=== PATIENT | female | born 1985 | race Caucasian/White ===

== ENCOUNTER → 2023-12-06 14:46 | Outpatient (REF) | payer OTHER, SELFPAY | LOC: WDC 14:46 | PROVIDERS: ATTENDING PHYSICIAN Surgery | DX: N63.0 Unspecified lump in unspecified breast (principal) | CPT/HCPCS: 76642 ==

== ENCOUNTER 2024-01-03 19:35 | Emergency (ER) | payer OTHER, SELFPAY ==
[2024-01-03 19:43] VITALS: BP 137/88
[2024-01-03 20:04] LABS: % Basophils 0.9 % (0-2); % Eosinophils 6.2 % (0-6); % Immature Granulocytes 0.3 % (0-0.5); % Lymphocytes 19.9 % (20.5-51.1); % Monocytes 6.2 % (1.7-9.3); % Neutrophils 66.5 % (42.2-75.2); Absolute Basophils 0.1 10^3/uL (0-0.2); Absolute Eosinophils 0.7 10^3/uL (0-0.7); Absolute Lymphocytes 2.1 10^3/uL (1.2-3.4); Absolute Monocytes 0.7 10^3/uL (0.1-0.6); Hematocrit 37.9 % (37.0-47.0); Hemoglobin 13.9 g/dL (12.0-16.0); Mean Corp Hgb Conc. 36.7 g/dL (33.0-37.0); Mean Corpuscular Hgb 32.8 pg (27.0-31.0); Mean Corpuscular Volume 89.4 fL (81.0-99.0); Mean Platelet Volume 8.9 fL (7.4-10.4); Nucleated Red Blood Cells % 0 %; Platelet Count 304 10^3/uL (130-400); Red Blood Cell Count 4.24 10^6/uL (4.20-5.40); Red Cell Dist. Width 11.9 % (11.5-14.5); White Blood Cell Count 10.5 10^3/uL (4.8-10.8)
[2024-01-03 20:15] LABS: ALT (SGPT) 12 U/L (0-35); AST (SGOT) 19 U/L (14-36); Albumin 4.2 g/dl (3.5-5.0); Alkaline Phosphatase 55 U/L (38-126); Blood Urea Nitrogen 10 mg/dl (7-17); Calcium 9.2 mg/dl (8.4-10.2); Carbon Dioxide 27 mmol/L (22-30); Chloride 104 mmol/L (98-107); Glucose 78 mg/dl (70-99); Potassium 4.4 mmol/L (3.5-5.1); Sodium 135 mmol/L (135-145); Total Bilirubin 0.4 mg/dl (0.2-1.3); Total Protein 7.2 g/dl (6.3-8.2); eGFR > 60.00
[2024-01-03 20:27] LABS: Troponin I < 0.012 ng/ml
--- NOTE | 2024-01-03 21:31 | ED.GENMED ---
History of Present Illness
General
Chief Complaint: Chest Pain
Source: patient
Time Seen by Provider: 01/03/24 20:47
Travel History
Have you had any contact with someone who has COVID-19?: No
Do you have any symptoms of coronavirus? Fever > 100 degrees, chills, cough, shortness of breath, sore throat, loss of taste or smell, muscle aches, or headache?: No
History of Present Illness
History of Present Illness:
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
intermittently for a few months but today symptoms seem to be a little bit more constant prompting her to come to the ER for further evaluation. Patient was states that intermittently when laying recumbent she will often feel this sharp sensation
on the left side of her chest that lasts for a few minutes and then will resolve, today noticed when she would take of breath feel an intermittent clicking or as if something were rubbing against her but this was not painful. She denies any
shortness of breath, cough, pleurisy, hemoptysis, lower extremity edema, exertional dyspnea or orthopnea, fevers, chills, rigors, recent illnesses or any other concerns. Social and family history was noncontributory.
Of note, patient reports she is approximately 6 weeks but does not have any related concerns.
Past History
Past History
ED Past Medical History: Cancer and Psychiatric
ED Past Surgical History: , Gynecological and Other
Social History
Tobacco: Non-smoker
Alcohol: Occasional
Drug: None
Personal:
Living: with family
Employment: Employed
Family History
Family History: Other (nonContributory)
Review of Systems
Review of Systems
All Other Systems: ROS reviewed and negative except as documented in HPI and ROS
Phy Exam
Physical Exam
Physical Exam:
GENERAL: Alert , in no apparent distress
EYE: clear conjunctiva b/l
HEAD: NCAT
ENT: o/p clr, mmm.
CARDIAC: Regular rate and rhythm, no murmur.
LUNGS: Clear breath sounds bilaterally, no acute respiratory distress, no wheezes/rales/rhonchi
Chest Wall: no tenderness
NEUROLOGICAL: Alert and oriented
SKIN: Warm and dry, skin intact.
MUSCULOSKELETAL: No edema, well perfused.
PSYCH: Normal and appropriate interaction.
Scores
Heart Failure Risk
Heart Failure Risk Score: Not Applicable
Heart Score for Chest Pain Patients
STEMI patient?: Not applicable
Withdrawal Assessment of Alcohol
Withdrawal Assessment Completed?: Not applicable
Course
Orders/Labs/Results
Orders:
Orders
01/03/24 19:37
ECG [Electrocardiogram (*1)] Urgent
Reason for Study: Chest Pain
EKG- Treatment ONCE
01/03/24 19:57
Complete Blood Count/With Diff Urgent
Comprehensive Metabolic Panel Urgent
Troponin I Urgent
Abnormal Lab Results
01/03/24
19:57
MCH 32.8 H pg
(27.0-31.0)
Absolute Neuts (auto) 7.0 H 10^3/uL
(1.4-6.5)
Absolute Monos (auto) 0.7 H 10^3/uL
(0.1-0.6)
Lymphocytes % 19.9 L %
(20.5-51.1)
Eosinophils % 6.2 H %
(0-6)
Creatinine 0.5 L mg/dL
(0.6-1.0)
01/03/24 19:57
01/03/24 19:57
Vital Signs
Initial and Last Documented VS:
Initial Vital Signs
Temp Pulse Resp BP Pulse Ox
97.9 F 94 16 137/88 99
01/03/24 19:43 01/03/24 19:43 01/03/24 19:43 01/03/24 19:43 01/03/24 19:43
Last Documented Vital Signs
Temp Pulse Resp BP Pulse Ox
98.1 F 78 20 121/81 98
01/03/24 21:38 01/03/24 21:38 01/03/24 21:38 01/03/24 21:38 01/03/24 21:44
MDM/Problems Addressed
Differential Diagnosis Includes:
Pleurisy, radiation changes, less concern for ACS presentation given duration of symptoms, PE also considered given patient's risk factors however given lack of symptoms as well as duration of her symptoms felt this was a much less likely diagnosis
MDM/Problems Addressed:
38-year-old female presenting emergency department for evaluation of intermittent chest discomfort that has been off and on over the last 6 weeks, today the pain would be a little bit more consistent although would last only for a minute or 2 and
then resolved. Patient did state that symptoms seem to be only occurring when lying recumbent and that when she would get up and move around the symptoms may have actually improved a little bit. I do not have any suspicion for an atypical ACS
presentation. Patient and I also had a very extensive conversation about her risk factors for PE including her cancer history as well as current however given the fact that she has had the symptoms even prior to her makes this
much less likely to be the cause of her symptoms. Due to her early first trimester state combined with lack of symptoms as well as what would be an atypical presentation for a PE diagnosis patient ultimately decided against any chest imaging
including a CTA of the chest and chest x-ray. We reviewed return precautions to the emergency department. Patient has a follow-up coming up with her radiation oncologist and she will notify them of these symptoms she has been experiencing.
Patient does feel comfortable being discharged home.
Chronic conditions affecting care: Cancer
*Pulse Oximetry
Patient hypoxic: no
*EKG
Interpreted by ED Provider?: Yes
Comparison EKG: no comparison EKG present
Heart Rate: 91
Rate: normal
Rhythm: sinus arrhythmia
[place]: normal axis
Ischemia: no ischemia
*Critical Care Note
Total Time (30-74mins, 75-104mins- exclusive of procedures): Not Applicable
Data Reviewed
Review of Other/Old Records Reveals: Labs and Records
Source: patient
ED Attending Note
-
Portions of this chart may have been created with voice recognition software.� Occasional wrong word or��sound alike� substitutions may have occurred due to the inherent limitations of voice recognition software.
Discharge Plan
Departure
Patient Disposition: Home (Routine Discharge)
Date of Disposition: 01/03/24
Time of Disposition: 21:31
Patient with high blood pressure during this ER visit?: No
Discharge Problem:
Chest pain
Instructions: Chest Pain That Is Not Caused by the Heart (DC)
Prescriptions:
No Action
bupropion HCl [Wellbutrin XL] 150 mg Tablet Extended Release 24 Hr
150 mg PO DAILY
fluoxetine 20 mg Capsule
20 mg PO DAILY Qty: 0 0RF
dextroamphetamine-amphetamine [Adderall] 30 mg Tablet
30 mg PO DAILY PRN (Reason: ADHD)
multivitamin Tablet
1 tab PO DAILY
vitamin B complex Capsule
1 cap PO DAILY
vitamin D3-vitamin K2 1,250-200 mcg Capsule
1 cap PO DAILY
docusate sodium 100 mg Capsule
100 mg PO BID PRN (Reason: Constipation) 30 Days Qty: 60 0RF
acetaminophen [Pain Relief ES (acetaminophen)] 500 mg Tablet
1,000 mg PO Q6 Qty: 90 1RF
tramadol 50 mg Tablet
50 - 100 mg PO Q6HPRN PRN (Reason: pain) 15 Days Qty: 20 0RF
diazepam 5 mg Tablet
5 mg PO TIDPRN PRN (Reason: Muscle Spasms) 30 Days Qty: 40 0RF
cefadroxil 500 mg capsule
500 mg PO BID 21 Days Qty: 42 0RF
ibuprofen 600 mg tablet
600 mg PO Q6H PRN (Reason: mild pain) Qty: 60 1RF
gabapentin 100 mg capsule
100 mg PO TID 30 Days Qty: 90 1RF
Interventions
Interventions:
*Risk Screen - Suicide Last Done: 01/03/24 19:48
*General Assessment Last Done: 01/03/24 19:48
*Neglect/Abuse Screening Last Done: 01/03/24 19:48
ED- Fall Risk Assessment Last Done: 01/03/24 21:44
*ED COVID-19 Vaccine History Last Done: 01/03/24 21:38
*Nursing Disposition Last Done: 01/03/24 21:44
ED- Cardiac Assessment Last Done: 01/03/24 21:38
Discharge Date and Time
Print Language: BANGLADESHI
[2024-01-03 21:38] VITALS: BP 121/81
== END 2024-01-03 21:44 | disposition home or self-care (01) ==
LOC: EMR 19:35
PROVIDERS: Emergency Medicine; EMERGENCY PHYSICIAN Emergency Medicine
DX: O99.891 Other specified diseases and conditions complicating pregnancy (principal); Z3A.01 Less than 8 weeks gestation of pregnancy; R07.89 Other chest pain; Z85.3 Personal history of malignant neoplasm of breast; Z90.13 Acquired absence of bilateral breasts and nipples
CPT/HCPCS: 99283; 80053; 84484; 85025; 93005

== ENCOUNTER → 2024-05-01 12:47 | Outpatient (REF) | payer OTHER, SELFPAY | LOC: WDC 12:47 | PROVIDERS: ATTENDING PHYSICIAN Surgery | DX: R92.2 Inconclusive mammogram (principal); C50.412 Malignant neoplasm of upper-outer quadrant of left female breast | CPT/HCPCS: 76641 ==

== ENCOUNTER → 2024-05-28 09:37 | Outpatient (REF) | payer OTHER, SELFPAY | LOC: PNTC 09:37 | PROVIDERS: ATTENDING PHYSICIAN Obstetrics & Gynecology | DX: O09.529 Supervision of elderly multigravida, unspecified trimester (principal) | CPT/HCPCS: 76816 ==

== ENCOUNTER 2024-06-05 09:53 | Observation (INO) | payer OTHER, SELFPAY ==
[2024-06-05 10:11] VITALS: BP 113/68; BMI 26.9
[2024-06-05 10:15] LABS: Urine Albumin Negative (Neg - Trace); Urine Bilirubin Negative (Negative); Urine Character Clear (Clear); Urine Color Yellow; Urine Glucose Negative (Negative); Urine Ketone Negative (Negative); Urine Leukocyte Negative (Negative); Urine Nitrite Negative (Negative); Urine Occult Blood Negative (Negative); Urine Specific Gravity 1.005 (<1.030); Urine Urobilinogen Negative (Neg - 1+)
[2024-06-05 10:37] LABS: % Basophils 0.6 % (0-2); % Eosinophils 1.3 % (0-6); % Immature Granulocytes 3.1 % (0-0.5); % Lymphocytes 7.8 % (20.5-51.1); % Monocytes 6.3 % (1.7-9.3); % Neutrophils 80.9 % (42.2-75.2); Absolute Basophils 0.1 10^3/uL (0-0.2); Absolute Eosinophils 0.1 10^3/uL (0-0.7); Absolute Immature Granulocytes 0.3 10^3/uL (0-0.05); Absolute Lymphocytes 0.8 10^3/uL (1.2-3.4); Absolute Monocytes 0.6 10^3/uL (0.1-0.6); Absolute Neutrophils 8.1 10^3/uL (1.4-6.5); Hematocrit 31.6 % (37.0-47.0); Hemoglobin 11.5 g/dL (12.0-16.0); Mean Corp Hgb Conc. 36.4 g/dL (33.0-37.0); Mean Corpuscular Hgb 34.2 pg (27.0-31.0); Mean Platelet Volume 8.9 fL (7.4-10.4); Nucleated Red Blood Cells % 0 %; Platelet Count 242 10^3/uL (130-400); Red Blood Cell Count 3.36 10^6/uL (4.20-5.40); Red Cell Dist. Width 12.8 % (11.5-14.5)
[2024-06-05 10:47] LABS: ALT (SGPT) 13 U/L (0-35); AST (SGOT) 22 U/L (14-36); Albumin 3.8 g/dl (3.5-5.0); Alkaline Phosphatase 71 U/L (38-126); Blood Urea Nitrogen 9 mg/dl (7-17); Calcium 9.3 mg/dl (8.4-10.2); Carbon Dioxide 19 mmol/L (22-30); Chloride 105 mmol/L (98-107); Estimated Creatinine Clearance > 125 ml/min; Glucose 83 mg/dl (70-99); Sodium 137 mmol/L (135-145); Total Bilirubin 0.4 mg/dl (0.2-1.3); Total Protein 6.3 g/dl (6.3-8.2); eGFR > 60.00
[2024-06-05 11:31] LABS: Protein/creatinine Ratio 0.4; Urine Protein 12 mg/dl
== END 2024-06-05 12:45 | disposition home or self-care (01) ==
LOC: LDRP 09:53
PROVIDERS: ADMITTING PHYSICIAN Obstetrics & Gynecology
DX: R10.11 Right upper quadrant pain (principal); O98.313 Other infections with a predominantly sexual mode of transmission complicating pregnancy, third trimester; A63.0 Anogenital (venereal) warts; Z3A.28 28 weeks gestation of pregnancy; O34.219 Maternal care for unspecified type scar from previous cesarean delivery; N97.9 Female infertility, unspecified; O09.523 Supervision of elderly multigravida, third trimester; O09.293 Supervision of pregnancy with other poor reproductive or obstetric history, third trimester; O26.23 Pregnancy care for patient with recurrent pregnancy loss, third trimester; O09.813 Supervision of pregnancy resulting from assisted reproductive technology, third trimester; O99.343 Other mental disorders complicating pregnancy, third trimester; F41.9 Anxiety disorder, unspecified; F32.A Depression, unspecified
CPT/HCPCS: 80053; 81003; 82570; 84156; 85025; 86850; 86900; 86901; 87086; G0378

== ENCOUNTER 2024-06-06 14:41 | Emergency (ER) | payer OTHER, SELFPAY ==
[2024-06-06 16:38] LABS: % Basophils 0.5 % (0-2); % Eosinophils 2.6 % (0-6); % Immature Granulocytes 2.4 % (0-0.5); % Lymphocytes 13.9 % (20.5-51.1); % Monocytes 7.6 % (1.7-9.3); Absolute Basophils 0.1 10^3/uL (0-0.2); Absolute Eosinophils 0.2 10^3/uL (0-0.7); Absolute Immature Granulocytes 0.2 10^3/uL (0-0.05); Absolute Lymphocytes 1.3 10^3/uL (1.2-3.4); Absolute Monocytes 0.7 10^3/uL (0.1-0.6); Absolute Neutrophils 6.8 10^3/uL (1.4-6.5); Hematocrit 32.2 % (37.0-47.0); Hemoglobin 11.6 g/dL (12.0-16.0); Mean Corpuscular Hgb 34.3 pg (27.0-31.0); Mean Corpuscular Volume 95.3 fL (81.0-99.0); Mean Platelet Volume 8.9 fL (7.4-10.4); Nucleated Red Blood Cells % 0 %; Platelet Count 227 10^3/uL (130-400); Red Blood Cell Count 3.38 10^6/uL (4.20-5.40); Red Cell Dist. Width 13.1 % (11.5-14.5); White Blood Cell Count 9.4 10^3/uL (4.8-10.8)
[2024-06-06 16:47] LABS: Urine Albumin Negative (Neg - Trace); Urine Bilirubin Negative (Negative); Urine Character Clear (Clear); Urine Color Straw; Urine Glucose Negative (Negative); Urine Ketone Trace (Negative); Urine Leukocyte Negative (Negative); Urine Nitrite Negative (Negative); Urine Occult Blood Negative (Negative); Urine Urobilinogen Negative (Neg - 1+)
[2024-06-06 16:49] LABS: ALT (SGPT) 14 U/L (0-35); AST (SGOT) 21 U/L (14-36); Albumin 3.7 g/dl (3.5-5.0); Alkaline Phosphatase 68 U/L (38-126); Blood Urea Nitrogen 11 mg/dl (7-17); Calcium 9.4 mg/dl (8.4-10.2); Carbon Dioxide 21 mmol/L (22-30); Chloride 106 mmol/L (98-107); Glucose 81 mg/dl (70-99); Lipase 67 U/L (23-300); Potassium 3.8 mmol/L (3.5-5.1); Sodium 138 mmol/L (135-145); Total Bilirubin 0.3 mg/dl (0.2-1.3); Total Protein 6.1 g/dl (6.3-8.2); eGFR > 60.00
[2024-06-06 17:05] VITALS: BP 120/76
--- NOTE | 2024-06-06 17:16 | ED.GENMED ---
History of Present Illness
General
Chief Complaint: Abdominal Pain
Source: patient
Time Seen by Provider: 06/06/24 15:36
History of Present Illness
History of Present Illness:
38-year-old female presents for evaluation of right quad abdominal pain. The patient states she was here last night in labor and delivery and had a full evaluation and was advised to get outpatient ultrasound of her gallbladder. Patient states
today pain has persisted. She states her labs yesterday were normal. She states the patient is worse when she standing and better when she lays flat. She admits that she is not sure if it is worse after she eats. The patient states she just gets
nervous because she has a history of breast cancer. Did get a mastectomy bilaterally and had radiation. She denies pleuritic pain. She denies shortness of breath. No back pain. No hemoptysis. No leg swelling.
Past History
Past History
ED Past Medical History: Cancer (Breast), Psychiatric and Other (Endometritis, anxiety, depression)
ED Past Surgical History: , Gynecological and Other
Social History
Tobacco: Non-smoker
Alcohol: Occasional
Drug: None
Personal:
Living: with family
Employment: Employed
Family History
Family History: Other (nonContributory)
Phy Exam
Physical Exam
Physical Exam:
CONSTITUTIONAL Patient alert and oriented to person, place and time. Well-appearing. Vital signs reviewed.
HEAD atraumatic, normocephalic.
EYES eyelids normal to inspection, Pupils equally round and reactive to light, Extraocular muscles intact, Conjunctiva normal, Sclera normal.
NECK normal range of motion, Trachea midline, no jugular venous distention.
RESPIRATORY CHEST No respiratory distress noted, Chest expansion equal, Bilateral breath sounds clear.
CARDIOVASCULAR regular rate and rhythm, Heart sounds normal.
ABDOMEN abdomen nontender, Bowel sounds normal. No distention. Gravid uterus noted. Negative Teran's
BACK normal inspection, no obvious deformities
UPPER EXTREMITY range of motion normal, Motor strength normal, no cyanosis, no edema.
LOWER EXTREMITY range of motion normal, Motor strength normal, no cyanosis, no edema.
NEURO Speech normal, No focal motor deficits, Maurice coma scale 15, Memory normal, Cranial Nerves intact to screening exam.
SKIN skin warm, dry, and normal in color.
PSYCHIATRIC patient oriented to person place and time, Normal affect.
Course
Orders/Labs/Results
Orders:
Orders
06/06/24 16:01
US Abdomen Complete/Upper Urgent
Comment:
Reason For Exam: RUQ pain
06/06/24 16:27
Complete Blood Count/With Diff Urgent
Comprehensive Metabolic Panel Urgent
Lipase Urgent
Urinalysis Reflex To Culture Urgent
Date Specimen was Collected: 06/06/24
Time Specimen was Collected: 16:25
Abnormal Lab Results
06/06/24
16:27
RBC 3.38 L 10^6/uL
(4.20-5.40)
Hgb 11.6 L g/dL
(12.0-16.0)
Hct 32.2 L %
(37.0-47.0)
MCH 34.3 H pg
(27.0-31.0)
Abs Immat Gran (auto) 0.2 H 10^3/uL
(0-0.05)
Absolute Neuts (auto) 6.8 H 10^3/uL
(1.4-6.5)
Absolute Monos (auto) 0.7 H 10^3/uL
(0.1-0.6)
Immature Gran % 2.4 H %
(0-0.5)
Lymphocytes % 13.9 L %
(20.5-51.1)
Carbon Dioxide 21 L mmol/L
(22-30)
Creatinine 0.5 L mg/dL
(0.6-1.0)
Total Protein 6.1 L g/dl
(6.3-8.2)
Urine Ketones Trace A
(Negative)
06/06/24 16:27
06/06/24 16:27
Vital Signs
Initial and Last Documented VS:
Initial Vital Signs
Temp Pulse Resp BP Pulse Ox
98.3 F 86 18 120/76 98
06/06/24 17:05 06/06/24 17:05 06/06/24 17:05 06/06/24 17:05 06/06/24 17:05
Last Documented Vital Signs
Temp Pulse Resp BP Pulse Ox
98.3 F 86 18 120/76 98
06/06/24 17:05 06/06/24 17:05 06/06/24 17:05 06/06/24 17:05 06/06/24 17:05
MDM/Problems Addressed
MDM/Problems Addressed:
Abdominal pain
*Radiology
Radiology exam reviewed: radiology read reviewed
*Pulse Oximetry
Patient hypoxic: no
*Critical Care Note
Total Time (30-74mins, 75-104mins- exclusive of procedures): Not Applicable
Data Reviewed
Source: patient
Further Testing Considered But Not Given:
Consider evaluation for PE but no pleuritic pain. No hypoxia. No dyspnea. No tachypnea
Patient Management
Escalation/DeEscalation of care consider admission/obs:
Patient appears well. Labs grossly unremarkable. Ultrasound negative. Patient admits that is only bad when she stands. She I question whether this could be musculoskeletal in nature. I do feel she is safe for discharge and outpatient follow-up.
hearts normal
ED Attending Note
-
Portions of this chart may have been created with voice recognition software.� Occasional wrong word or��sound alike� substitutions may have occurred due to the inherent limitations of voice recognition software.
Discharge Plan
Departure
Patient Disposition: Home (Routine Discharge)
Date of Disposition: 06/06/24
Time of Disposition: 18:01
Patient with high blood pressure during this ER visit?: No
Discharge Problem:
Abdominal pain
Instructions: Abdominal Pain
Prescriptions:
No Action
bupropion HCl [Wellbutrin XL] 150 mg Tablet Extended Release 24 Hr
150 mg PO BID
prenat.vits,wendy,nir-ateg-[id number] Tablet
1 tab PO DAILY
escitalopram oxalate [Lexapro] 5 mg Tablet
5 mg PO HS
acetaminophen [Tylenol Extra Strength] 500 mg Tablet
1,000 mg PO Q6HPRN PRN (Reason: headache) Qty: 0 0RF
Referrals:
NONE,* [Family Provider] -
Activity Restrictions/Additional Instructions:
Please see your doctor in follow-up in the next 1 week. Return immediately for worsening pain, shortness of breath, pain when you take a deep breath, fevers or any other concern please additionally monitor for any vaginal bleeding, loss of
movement, abdominal cramping or any other concerns.
Interventions
Interventions:
*Risk Screen - Suicide Last Done: 06/06/24 17:06
*General Assessment Last Done: 06/06/24 17:06
*Neglect/Abuse Screening Last Done: 06/06/24 17:06
ED- Fall Risk Assessment Last Done: 06/06/24 17:09
*ED COVID-19 Vaccine History Last Done: 06/06/24 17:09
XD-Arqdag-Dopmpbouhm Assessment Last Done: 06/06/24 15:18
Discharge Date and Time
Print Language: MALAY
== END 2024-06-06 18:33 | disposition home or self-care (01) ==
LOC: EMR 14:41
PROVIDERS: EMERGENCY PHYSICIAN Emergency Medicine
DX: O99.891 Other specified diseases and conditions complicating pregnancy (principal); R10.11 Right upper quadrant pain; Z85.3 Personal history of malignant neoplasm of breast; Z90.13 Acquired absence of bilateral breasts and nipples; Z3A.28 28 weeks gestation of pregnancy
CPT/HCPCS: 99284; 76700; 80053; 81003; 83690; 85025

== ENCOUNTER 2024-07-30 13:19 | Observation (INO) | payer OTHER, SELFPAY ==
[2024-07-30 13:47] VITALS: BP 123/71; BMI 28.4
[2024-07-30 13:51] LABS: Urine Albumin Negative (Neg - Trace); Urine Bilirubin Negative (Negative); Urine Character Clear (Clear); Urine Color Yellow; Urine Glucose 1+ (Negative); Urine Ketone 1+ (Negative); Urine Leukocyte Negative (Negative); Urine Nitrite Negative (Negative); Urine Occult Blood Negative (Negative); Urine Urobilinogen Negative (Neg - 1+)
[2024-07-30 14:00] LABS: Hematocrit 28.2 % (37.0-47.0); Hemoglobin 10.3 g/dL (12.0-16.0); Mean Corp Hgb Conc. 36.5 g/dL (33.0-37.0); Mean Corpuscular Hgb 33.4 pg (27.0-31.0); Mean Corpuscular Volume 91.6 fL (81.0-99.0); Mean Platelet Volume 9.1 fL (7.4-10.4); Platelet Count 219 10^3/uL (130-400); Red Blood Cell Count 3.08 10^6/uL (4.20-5.40); Red Cell Dist. Width 13.1 % (11.5-14.5); White Blood Cell Count 10.3 10^3/uL (4.8-10.8)
[2024-07-30 14:15] LABS: ALT (SGPT) 12 U/L (0-35); AST (SGOT) 20 U/L (14-36); Albumin 3.3 g/dl (3.5-5.0); Alkaline Phosphatase 96 U/L (38-126); Blood Urea Nitrogen 6 mg/dl (7-17); Calcium 9.3 mg/dl (8.4-10.2); Carbon Dioxide 23 mmol/L (22-30); Chloride 106 mmol/L (98-107); Estimated Creatinine Clearance > 125 ml/min; Glucose 128 mg/dl (70-99); Potassium 3.8 mmol/L (3.5-5.1); Sodium 137 mmol/L (135-145); Total Bilirubin 0.2 mg/dl (0.2-1.3); Total Protein 5.7 g/dl (6.3-8.2); eGFR > 60.00
[2024-07-30 15:20] LABS: Protein/creatinine Ratio 0.5; Urine Protein 15 mg/dl
== END 2024-07-30 16:45 | disposition home or self-care (01) ==
LOC: PNTC-IN 13:19
PROVIDERS: ADMITTING PHYSICIAN Obstetrics & Gynecology
DX: R10.11 Right upper quadrant pain (principal); R03.0 Elevated blood-pressure reading, without diagnosis of hypertension; O09.523 Supervision of elderly multigravida, third trimester; Z3A.28 28 weeks gestation of pregnancy; N97.9 Female infertility, unspecified
CPT/HCPCS: 59025; 76815; 80053; 81003; 82570; 84156; 85027; 86850; 86900; 86901; G0378

== ENCOUNTER → 2024-08-06 11:19 | Outpatient (REF) | payer OTHER, SELFPAY | LOC: PNTC 11:19 | PROVIDERS: ATTENDING PHYSICIAN Obstetrics & Gynecology | DX: O09.519 Supervision of elderly primigravida, unspecified trimester (principal) | CPT/HCPCS: 59025; 76815 ==

== ENCOUNTER 2024-08-08 15:17 | Inpatient (IN) | payer OTHER, SELFPAY ==
[2024-08-08 14:01] VITALS: BP 145/86; BMI 28.9
[2024-08-08 14:38] LABS: Hematocrit 30.8 % (37.0-47.0); Hemoglobin 11.1 g/dL (12.0-16.0); Mean Corpuscular Volume 94.5 fL (81.0-99.0); Mean Platelet Volume 9.4 fL (7.4-10.4); Platelet Count 236 10^3/uL (130-400); Red Blood Cell Count 3.26 10^6/uL (4.20-5.40); Red Cell Dist. Width 13.2 % (11.5-14.5); White Blood Cell Count 12.5 10^3/uL (4.8-10.8)
[2024-08-08 15:03] LABS: INR 0.97; PT 13.2 Sec (11.4-14.6)
[2024-08-08 15:03] LABS: ALT (SGPT) 14 U/L (0-35); AST (SGOT) 22 U/L (14-36); Albumin 3.6 g/dl (3.5-5.0); Alkaline Phosphatase 122 U/L (38-126); Blood Urea Nitrogen 5 mg/dl (7-17); Calcium 9.1 mg/dl (8.4-10.2); Carbon Dioxide 23 mmol/L (22-30); Chloride 108 mmol/L (98-107); Estimated Creatinine Clearance > 125 ml/min; Glucose 78 mg/dl (70-99); Potassium 3.9 mmol/L (3.5-5.1); Sodium 139 mmol/L (135-145); Total Bilirubin 0.3 mg/dl (0.2-1.3); Total Protein 6.2 g/dl (6.3-8.2); eGFR > 60.00
[2024-08-08 15:11] LABS: Urine Albumin Negative (Neg - Trace); Urine Bilirubin Negative (Negative); Urine Character Very Cloudy (Clear); Urine Color Yellow; Urine Glucose Negative (Negative); Urine Ketone 3+ (Negative); Urine Leukocyte Negative (Negative); Urine Nitrite Negative (Negative); Urine Occult Blood Negative (Negative); Urine Urobilinogen Negative (Neg - 1+)
[2024-08-08 15:29] LABS: Protein/creatinine Ratio 0.3; Urine Protein 20 mg/dl
[2024-08-08] MEDS: LR 1000 IV (15:30)
[2024-08-08] MEDS: TYLENOL 1000 MG PO (15:48)
[2024-08-08] MEDS: BICITRA 30 ML PO (15:48)
[2024-08-08] MEDS: ANCEF 10 IV (16:00)
[2024-08-08] MEDS: PITOCIN 30 UNITS/NSS 500 ML IV (18:29)
[2024-08-08] MEDS: MORPHINE SULFATE 2 MG IV (18:50)
[2024-08-08] MEDS: ZOFRAN 4 MG IV (20:30)
[2024-08-08] MEDS: TORADOL 15 MG IV (23:54)
[2024-08-08] MEDS: BENADRYL 25 MG IV (23:57)
[2024-08-09 05:15] LABS: Hematocrit 28.4 % (37.0-47.0); Hemoglobin 10.4 g/dL (12.0-16.0); Mean Corp Hgb Conc. 36.6 g/dL (33.0-37.0); Mean Corpuscular Hgb 34.4 pg (27.0-31.0); Mean Platelet Volume 9.4 fL (7.4-10.4); Platelet Count 206 10^3/uL (130-400); Red Blood Cell Count 3.02 10^6/uL (4.20-5.40); Red Cell Dist. Width 13.2 % (11.5-14.5); White Blood Cell Count 12.8 10^3/uL (4.8-10.8)
[2024-08-09] MEDS: TORADOL 15 MG IV ×3 (05:56→18:58)
[2024-08-09] MEDS: LEXAPRO 5 MG PO (07:24)
[2024-08-09] MEDS: PRENATAL PLUS 1 TABLET PO (07:24)
[2024-08-09] MEDS: WELLBUTRIN XL (24 hour extended release) 300 MG PO (07:24)
[2024-08-09] MEDS: PERCOCET 5/325 1 TABLET PO ×3 (07:24→16:13)
[2024-08-09] MEDS: SENOKOT-S 1 TABLET PO (16:13)
[2024-08-09] MEDS: MYLICON 80 MG PO (20:54)
[2024-08-09] MEDS: PERCOCET 5/325 2 TABLET PO (20:54)
--- NOTE | 2024-08-09 21:08 | W.PN.ANS.POP ---
Anesthesia Post Operative
- Anesthesia Post Op Note
Vital Signs Stable-See Nursing Note: Yes
Airway Patent: Yes
Adequate Pain Control: Yes
Change in Mental Status: No
Current Postoperative Nausea & Vomiting: No
Anesthesia Complications: No
General Anesthetic Recall: No
Unplanned Admission: No
Post Op Hydration Adequate: Yes
[2024-08-10] MEDS: PERCOCET 5/325 1 TABLET PO ×4 (01:59→14:54)
[2024-08-10] MEDS: MOTRIN 600 MG PO ×4 (01:59→21:46)
[2024-08-10] MEDS: LEXAPRO 5 MG PO (07:54)
[2024-08-10] MEDS: PRENATAL PLUS 1 TABLET PO (07:54)
[2024-08-10] MEDS: WELLBUTRIN XL (24 hour extended release) 300 MG PO (07:54)
[2024-08-10] MEDS: SENOKOT-S 1 TABLET PO (07:56)
[2024-08-10] MEDS: MYLICON 80 MG PO (14:54)
[2024-08-10] MEDS: PERCOCET 5/325 2 TABLET PO (20:04)
[2024-08-11] MEDS: MOTRIN 600 MG PO ×2 (04:21→09:18)
[2024-08-11] MEDS: PERCOCET 5/325 1 TABLET PO (09:08)
[2024-08-11] MEDS: SENOKOT-S 1 TABLET PO (09:17)
[2024-08-11] MEDS: PRENATAL PLUS 1 TABLET PO (09:18)
[2024-08-11] MEDS: LEXAPRO 5 MG PO (09:18)
[2024-08-11] MEDS: WELLBUTRIN XL (24 hour extended release) 300 MG PO (09:19)
[2024-08-11 11:31] LABS: Syphilis/T. pallidum Ab Reflex Negative (Negative)
== END 2024-08-11 13:31 | disposition home or self-care (01) | DRG 788 ==
LOC: LDRP 15:17
PROVIDERS: Student in an Organized Health Care Education/Training Program; ADMITTING PHYSICIAN Obstetrics & Gynecology
PROC: 10D00Z1 Extraction of Products of Conception, Low, Open Approach (ICD-10-PCS; 2024-08-08)
DX: O14.94 Unspecified pre-eclampsia, complicating childbirth (principal); Z3A.37 37 weeks gestation of pregnancy; Z37.0 Single live birth; O99.892 Other specified diseases and conditions complicating childbirth; D25.2 Subserosal leiomyoma of uterus; O34.211 Maternal care for low transverse scar from previous cesarean delivery; O69.2XX0 Labor and delivery complicated by other cord entanglement, with compression, not applicable or unspecified; O77.0 Labor and delivery complicated by meconium in amniotic fluid; Z85.3 Personal history of malignant neoplasm of breast; Z90.13 Acquired absence of bilateral breasts and nipples
CPT/HCPCS: 88307; 36415; 80053; 81003; 82570; 84156; 84550; 85027; 85610; 86780; 86850; 86900; 86901

== ENCOUNTER 2024-08-21 20:10 | Observation (INO) | payer OTHER, SELFPAY ==
[2024-08-21 17:23] VITALS: BP 191/106
[2024-08-21 18:03] VITALS: BP 189/97
[2024-08-21 18:13] VITALS: BMI 26.2
[2024-08-21 18:21] LABS: % Basophils 0.9 % (0-2); % Eosinophils 3.1 % (0-6); % Immature Granulocytes 0.5 % (0-0.5); % Lymphocytes 20.6 % (20.5-51.1); % Neutrophils 70.9 % (42.2-75.2); Absolute Basophils 0.1 10^3/uL (0-0.2); Absolute Eosinophils 0.3 10^3/uL (0-0.7); Absolute Immature Granulocytes 0.1 10^3/uL (0-0.05); Absolute Lymphocytes 2.3 10^3/uL (1.2-3.4); Absolute Monocytes 0.4 10^3/uL (0.1-0.6); Absolute Neutrophils 7.8 10^3/uL (1.4-6.5); Hematocrit 39.1 % (37.0-47.0); Hemoglobin 13.8 g/dL (12.0-16.0); Mean Corp Hgb Conc. 35.3 g/dL (33.0-37.0); Mean Corpuscular Hgb 32.7 pg (27.0-31.0); Mean Corpuscular Volume 92.7 fL (81.0-99.0); Mean Platelet Volume 8.6 fL (7.4-10.4); Nucleated Red Blood Cells % 0 %; Platelet Count 369 10^3/uL (130-400); Red Blood Cell Count 4.22 10^6/uL (4.20-5.40); Red Cell Dist. Width 12.1 % (11.5-14.5); White Blood Cell Count 11.1 10^3/uL (4.8-10.8)
[2024-08-21 18:43] LABS: ALT (SGPT) 18 U/L (0-35); AST (SGOT) 22 U/L (14-36); Albumin 4.7 g/dl (3.5-5.0); Alkaline Phosphatase 103 U/L (38-126); Blood Urea Nitrogen 10 mg/dl (7-17); Calcium 9.8 mg/dl (8.4-10.2); Carbon Dioxide 27 mmol/L (22-30); Chloride 102 mmol/L (98-107); Estimated Creatinine Clearance 107 ml/min; Glucose 90 mg/dl (70-99); Potassium 3.8 mmol/L (3.5-5.1); Sodium 142 mmol/L (135-145); Total Bilirubin 0.4 mg/dl (0.2-1.3); Total Protein 7.6 g/dl (6.3-8.2); eGFR > 60.00
[2024-08-21 19:52] LABS: Urine Albumin Negative (Neg - Trace); Urine Bilirubin Negative (Negative); Urine Character Clear (Clear); Urine Color Yellow; Urine Glucose Negative (Negative); Urine Ketone Negative (Negative); Urine Leukocyte Negative (Negative); Urine Nitrite Negative (Negative); Urine Occult Blood 1+ (Negative); Urine Specific Gravity 1.005 (<1.030); Urine Urobilinogen Negative (Neg - 1+)
--- NOTE | 2024-08-21 19:58 | ED.GENMED ---
History of Present Illness
General
Chief Complaint: Blood Pressure Problem
Source: patient
Exam Limitations: none
Time Seen by Provider: 08/21/24 19:41
History of Present Illness
History of Present Illness:
almost 2 weeks presents with a slight foggy feeling in her head and some mild chest pressure. This started this afternoon. She took an Adderall 30 mg today prior. She historically has been on Adderall. Blood pressures were
elevated. Blood pressures have been elevated peripartum. She was delivered at 37 weeks. No blood pressure management. Blood pressures at home are in the 190/110 range.
Past History
Past History
ED Past Medical History: Cancer (Breast), Psychiatric, Other (Endometritis, anxiety, depression) and Other (Preeclampsia)
ED Past Surgical History: , Gynecological and Other
Social History
Tobacco: Non-smoker
Alcohol: Occasional
Drug: None
Personal:
Living: with family
Employment: Employed
Family History
Family History: Other (nonContributory)
Phy Exam
Physical Exam
Physical Exam:
GENERAL: Alert and oriented in no apparent distress
EYE: Orbits normal. Discs sharp
NECK: Supple, no significant adenopathy.
ENT: Pharynx without erythema
CARDIAC: Regular rate and rhythm without any obvious murmurs.
LUNGS: Clear breath sounds,normal
ABDOMEN: Soft, without focal tenderness or distention
NEUROLOGICAL: Alert and oriented , grossly non-focal. Mildly hyperreflexic patellar reflexes. No clonus
SKIN: Warm and dry, no rash or lesion, no discoloration, skin intact.
MUSCULOSKELETAL: No edema,no deformity.Good color
PSYCH: Normal and appropriate interaction.
Course
Orders/Labs/Results
Orders:
Orders
08/21/24 Breakfast
NPO
Allow oral meds: Yes
Allow clear liquids: Sips of Clears
08/21/24 17:29
ECG [Electrocardiogram (*1)] Urgent
Reason for Study: Other
Other Reason for Exam: blood pressure
08/21/24 17:30
EKG- Treatment ONCE
08/21/24 18:11
Complete Blood Count/With Diff Urgent
Comprehensive Metabolic Panel Urgent
08/21/24 19:44
Urinalysis Urgent
Date Specimen was Collected: 08/21/24
Time Specimen was Collected: 19:41
Urine Microscopic Urgent
Date Specimen was Collected: 08/21/24
Time Specimen was Collected: 19:41
08/21/24 19:57
Calcium Gluconate 1,000 mg IV PRN PRN
Magnesium Sulfate 4 Gram/100Ml [Magnesium Sulfate] 4 gram in 100 ml IV NOW
Activity As Directed
Activity Level: Bedrest
Comment: in lateral recumbent position
Anti-embolism (BLACK) Hose As Directed
Type: Thigh high
Continuous Electronic Monitoring As Directed
Comment: continuous heart rate and uterine monitoring while undelivered
INT (Intravenous Needle Therapy) As Directed
Comment: Insert and maintain 2 IV access sites
Intake/ Output As Directed
Frequency: q1h
Comment: strict hourly Input and Output while on magnesium therapy
Magnesium Sulfate Maternal Monitoring As Directed
Monitoring Instructions: Maternal vital signs including Oxygen Saturation
- every 5 minutes during bolus of Magnesium Sulfate, then every 15 minutes x 4, then
every 30 minutes x 2, then every hour until delivered.
- After delivery, every 15 minutes x 2, then hourly until magnesium sulfate therapy
is discontinued.
Deep tendon reflexes (DTR) every 2 hours
Ausculation of lungs every 2 hours
Notify MD As Directed
Notify physician if: 1. Deep tendon reflexes are greater than +2 or absent
2. Rales present or respirations less than or equal to 12
Vital Signs As Directed
Frequency: Other
Additional Instructions:: Maternal vital signs including Oxygen Saturation
- every 5 minutes during bolus of Magnesium Sulfate, then every 15 minutes x 4, then
every 30 minutes x 2, then every hour until delivered.
-After delivery, every 15 minutes x 2, then hourly until magnesium sulfate therapy
is discontinued.
Vital Signs As Directed
Frequency: Other
Additional Instructions:: When blood pressure is within the target range:
repeat BP Q10min x 1hr, Q15min x 1hr, Q30min x 1hr, and Q1H x 4hr
Target BP < 160/110 mmHg
Rx Incentive Spirometry [RESP] Routine
Frequency: Other
Comment: BID
08/21/24 20:00
Lactated Ringers [Lr] 1,000 ml IV 75 mls/hr
Abnormal Lab Results
08/21/24 08/21/24
18:11 19:44
WBC 11.1 H 10^3/uL
(4.8-10.8)
MCH 32.7 H pg
(27.0-31.0)
Abs Immat Gran (auto) 0.1 H 10^3/uL
(0-0.05)
Absolute Neuts (auto) 7.8 H 10^3/uL
(1.4-6.5)
Urine Occult Blood 1+ A
(Negative)
Urine Bacteria Few A
(Negative)
08/21/24 18:11
08/21/24 18:11
Vital Signs
Initial and Last Documented VS:
Initial Vital Signs
Temp Pulse Resp BP Pulse Ox
97.8 F 66 18 191/106 98
08/21/24 17:23 08/21/24 17:23 08/21/24 17:23 08/21/24 17:23 08/21/24 17:23
Last Documented Vital Signs
Temp Pulse Resp BP Pulse Ox
97.8 F 52 17 189/97 97
08/21/24 17:23 08/21/24 18:30 08/21/24 18:30 08/21/24 18:03 08/21/24 18:30
*Pulse Oximetry
Patient hypoxic: no
*EKG
Interpreted by ED Provider?: Yes
Interpretation: normal
Heart Rate: 54
Rate: bradycardiac
Rhythm: sinus
[place]: normal axis
Interval: normal interval
QRS Pattern: normal QRS
Ischemia: no ischemia
*Critical Care Note
Total Time (30-74mins, 75-104mins- exclusive of procedures): Not Applicable
Update Note
Update Note:
Discussed with [facility]. Do not start mag here. They will see immediately upstairs and manage.
ED Attending Note
-
Portions of this chart may have been created with voice recognition software.� Occasional wrong word or��sound alike� substitutions may have occurred due to the inherent limitations of voice recognition software.
Discharge Plan
Departure
Patient Disposition: Admit
Date of Disposition: 08/21/24
Time of Disposition: 19:57
Presentation/result/management discussed w/ accepting MD/DO: [facility]
Discharge Problem:
preeclampsia
Prescriptions:
No Action
bupropion HCl [Wellbutrin XL] 300 mg Tablet Extended Release 24 Hr
300 mg PO DAILY
escitalopram oxalate [Lexapro] 5 mg Tablet
5 mg PO DAILY
prenat.vits,wendy,plh-gccm-uzxfr Tablet
1 tab DAILY
sennosides-docusate sodium 8.6-50 mg Tablet
1 tab PO DAILYPRN PRN (Reason: constipation) Qty: 0 0RF
oxycodone-acetaminophen 5-325 mg Tablet
1 tab PO Q4HPRN PRN (Reason: moderate pain) Qty: 10 0RF
ibuprofen 600 mg Tablet
600 mg PO Q6HPRN PRN (Reason: cramps) Qty: 45 0RF
acetaminophen 325 mg Tablet
650 mg PO Q4HPRN PRN (Reason: mild pain) Qty: 0 0RF
Referrals:
Lilia Monsalve DO [Family Provider] -
Interventions
Interventions:
ED- Cardiac Assessment Last Done: 08/21/24 18:35
ED- Neurological Assessment Last Done: 08/21/24 18:36
Discharge Date and Time
Print Language: DANISH
[2024-08-21 20:02] LABS: Urine Squamous Cell 0-2 /LPF (Few)
[2024-08-21 20:03] LABS: Urine Bacteria Few (Negative); Urine Red Blood Cell 0-2 /HPF (0-2); Urine White Cell 0-2 /HPF (0-5)
[2024-08-21 20:32] VITALS: BMI 25.9
[2024-08-21] MEDS: MAGNESIUM SULFATE 100 IV (20:37)
[2024-08-21] MEDS: LR 1000 IV (20:38)
[2024-08-21] MEDS: TYLENOL 1000 MG PO (20:50)
[2024-08-21] MEDS: ADALAT 10 MG PO (20:53)
[2024-08-21 21:11] VITALS: BP 176/96
[2024-08-21] MEDS: MAGNESIUM SULFATE 40 GRAM 1000 IV (21:15)
[2024-08-22] MEDS: MOTRIN 600 MG PO ×4 (01:38→20:47)
[2024-08-22] MEDS: TYLENOL 650 MG PO ×3 (04:05→14:36)
[2024-08-22] MEDS: LR 1000 IV (09:43)
[2024-08-22] MEDS: BENADRYL 25 MG IV (10:46)
[2024-08-22] MEDS: LEXAPRO 5 MG PO (12:37)
[2024-08-22] MEDS: WELLBUTRIN XL (24 hour extended release) 300 MG PO (12:37)
[2024-08-22 13:57] LABS: Magnesium 6.9 mg/dl (1.6-2.3)
[2024-08-22] MEDS: MAGNESIUM SULFATE 40 GRAM 1000 IV (16:47)
[2024-08-22] MEDS: FIORICET 2 TAB PO (17:03)
[2024-08-22] MEDS: PROCARDIA XL (EXTENDED RELEASE) 30 MG PO (19:51)
[2024-08-22] MEDS: FIORICET 1 TAB PO (23:59)
[2024-08-23] MEDS: MOTRIN 600 MG PO ×3 (03:07→16:10)
[2024-08-23] MEDS: PROCARDIA XL (EXTENDED RELEASE) 30 MG PO (08:38)
[2024-08-23] MEDS: LEXAPRO 5 MG PO (08:40)
[2024-08-23] MEDS: WELLBUTRIN XL (24 hour extended release) 300 MG PO (08:40)
[2024-08-23] MEDS: TYLENOL 650 MG PO (08:41)
[2024-08-23] MEDS: FIORICET 2 TAB PO (11:49)
--- NOTE | 2024-08-23 15:11 | CM ---
CM spoke with pt
Pt reports she lives in a 2 story home with her SO and 3 children
Currently unemployed, independent, drives
DME - none
SNF/HH - denies past hx
Has ride at discharge
PCP - none. Encouraged to obtain PCP
Pharm - [facility]
Plan - anticipate home no needs
[2024-08-24] MEDS: WELLBUTRIN XL (24 hour extended release) 300 MG PO (08:19)
[2024-08-24] MEDS: LEXAPRO 5 MG PO (08:19)
[2024-08-24] MEDS: PROCARDIA XL (EXTENDED RELEASE) 30 MG PO (08:19)
== END 2024-08-24 11:30 | disposition home or self-care (01) ==
LOC: LDRP 20:10
PROVIDERS: Student in an Organized Health Care Education/Training Program; ADMITTING PHYSICIAN Obstetrics & Gynecology; EMERGENCY PHYSICIAN Emergency Medicine; FAMILY PHYSICIAN Obstetrics & Gynecology
DX: O14.15 Severe pre-eclampsia, complicating the puerperium (principal); F32.A Depression, unspecified; F41.9 Anxiety disorder, unspecified; R00.1 Bradycardia, unspecified; G43.909 Migraine, unspecified, not intractable, without status migrainosus; Z87.59 Personal history of other complications of pregnancy, childbirth and the puerperium; Z85.3 Personal history of malignant neoplasm of breast
CPT/HCPCS: 80053; 81003; 81015; 83735; 85025; 93005; 99284

== ENCOUNTER → 2024-11-24 12:43 | Outpatient (REF) | payer OTHER, SELFPAY | LOC: RAD 12:43 | PROVIDERS: ATTENDING PHYSICIAN Surgery Plastic and Reconstructive Surgery; FAMILY PHYSICIAN Family Medicine | DX: Z42.1 Encounter for breast reconstruction following mastectomy (principal) | CPT/HCPCS: 74174; Q9967 ==

== ENCOUNTER → 2024-11-27 09:45 | Outpatient (REF) | payer OTHER, SELFPAY ==
[2024-11-27 11:07] LABS: % Basophils 0.9 % (0-2); % Eosinophils 6.3 % (0-6); % Immature Granulocytes 0.5 % (0-0.5); % Lymphocytes 19.8 % (20.5-51.1); % Monocytes 7.3 % (1.7-9.3); % Neutrophils 65.2 % (42.2-75.2); Absolute Basophils 0.1 10^3/uL (0-0.2); Absolute Eosinophils 0.5 10^3/uL (0-0.7); Absolute Lymphocytes 1.5 10^3/uL (1.2-3.4); Absolute Monocytes 0.6 10^3/uL (0.1-0.6); Absolute Neutrophils 4.9 10^3/uL (1.4-6.5); Hematocrit 38.4 % (37.0-47.0); Hemoglobin 13.5 g/dL (12.0-16.0); Mean Corp Hgb Conc. 35.2 g/dL (33.0-37.0); Mean Corpuscular Volume 93.9 fL (81.0-99.0); Mean Platelet Volume 9.5 fL (7.4-10.4); Nucleated Red Blood Cells % 0 %; Platelet Count 266 10^3/uL (130-400); Red Blood Cell Count 4.09 10^6/uL (4.20-5.40); Red Cell Dist. Width 12.1 % (11.5-14.5); White Blood Cell Count 7.5 10^3/uL (4.8-10.8)
[2024-11-27 11:49] LABS: ALT (SGPT) 16 U/L (0-35); AST (SGOT) 22 U/L (14-36); Albumin 5.1 g/dl (3.5-5.0); Alkaline Phosphatase 64 U/L (38-126); Blood Urea Nitrogen 19 mg/dl (7-17); Calcium 9.6 mg/dl (8.4-10.2); Carbon Dioxide 25 mmol/L (22-30); Chloride 103 mmol/L (98-107); Glucose 74 mg/dl (70-99); Potassium 4.4 mmol/L (3.5-5.1); Sodium 140 mmol/L (135-145); Total Bilirubin 0.9 mg/dl (0.2-1.3); Total Protein 7.7 g/dl (6.3-8.2); eGFR > 60.00
== END ==
LOC: REG 09:45
PROVIDERS: ATTENDING PHYSICIAN Surgery Plastic and Reconstructive Surgery
DX: Z01.818 Encounter for other preprocedural examination (principal)
CPT/HCPCS: 36415; 80053; 85025; 93005

== ENCOUNTER 2025-01-13 06:04 | Inpatient (IN) | payer OTHER, SELFPAY ==
[2025-01-13] VITALS (20 sets, daily range): BP systolic 102–126; BP diastolic 58–81; BMI 25.2; BMI 25.4
[2025-01-13] MEDS: LOVENOX 40 MG SC (06:35)
[2025-01-13] MEDS: NORMOSOL-R/PLASMALYTE-A 1000 IV (06:51)
--- NOTE | 2025-01-13 07:13 | W.SUR.PREOP ---
Pre-Operative Surgical Note
-
I have examined this patient prior to the performance of the scheduled procedure.
The patient's condition is unchanged from the time of the current History and
Physical and the patient is able to undergo the scheduled procedure.
--- NOTE | 2025-01-13 14:24 | CON.INTV ---
Consultation
Consultation Request
Date/Time Consultation Requested: 01/13/25-3 p.m.
Date/Time Consultation Performed: 01/13/25-3:30 PM
Requesting Provider: surgery
Performing Provider: Dr. Pappas
Reason for Consultation: postoperative critical care management
Medical History
-
Chief Complaint: breast cancer
History of Present Illness:
39-year-old 5, para 3 female with history of breast cancer status post bilateral mastectomy and underwent JACQUES flap reconstruction-curriculum designer consulted for postoperative critical care management 01/13/25. patient is a little groggy from
anesthesia but denies any shortness of breath, chest congestion, productive cough, chest pain or abdominal pain
Past Medical History
Past Medical History: None ( 5, para 3-3 C-sections. Breast cancer. Bilateral mastectomy. ADHD. anxiety/depression.)
Social History
Tobacco: Non-smoker
Personal:
Living: With Family
Occupational Exposures: no known asbestos exposure
Environmental Exposures: no known tuberculosis exposure
Family History
Family History: Other ( Maternal grandmother breast and ovarian cancer.)
Allergies / Home Medications
Allergies
Allergy/AdvReac Type Severity Reaction Status Date / Time
No Known Allergies Allergy Verified 01/13/25 06:26
Home Medications
�Medication �Instructions �Recorded �Confirmed �Last Taken �Type
bupropion HCl 150 mg 24 hr tablet, 150 mg PO DAILY depression/anxiety 08/21/24 01/13/25 01/13/25 03:30 History
extended release (Wellbutrin XL)
nifedipine 30 mg tablet,extended 30 mg PO DAILY #42 tabs 08/24/24 01/13/25 01/13/25 03:30 Rx
release
Merry Roots Liquid Multi 1 tbsp PO DAILY 01/06/25 01/13/25 01/06/25 History
Wellness Formula Multi 3 cap PO DAILY 01/06/25 01/13/25 01/06/25 History
ibuprofen 200 mg tablet 400 mg PO Q6H PRN pain 01/06/25 01/13/25 01/04/25 History
vilazodone 20 mg tablet 20 mg PO DAILY 01/06/25 01/13/25 01/13/25 03:30 History
Review of Systems
-
Unable to Obtain full review of systems at this time due to: Other ( Per HPI)
Vitals / Labs / Diagnostic Testing
Vital Signs
Temp Pulse Resp BP Pulse Ox
97.3 F 61 18 117/68 100
01/13/25 06:28 01/13/25 06:28 01/13/25 06:28 01/13/25 06:28 01/13/25 06:28
Diagnostic Testing:
Physical Exam
-
Exam:
well-nourished and well-developed in no apparent distress
HEENT-atraumatic, normocephalic
Neck-supple, no JVD, no bruit
Heart-regular rate and rhythm-no murmurs, rubs or gallops
Chest-clear to auscultation, no wheezes, crackles, bandages not removed from surgical sites
Back-no tenderness
Abdomen-soft, nontender, nondistended, no hepatosplenomegaly
Extremities-no cyanosis, clubbing, edema and good peripheral pulses
Integument-intact, no rashes, lesions or ecchymosis
Neurology-alert and oriented, nonfocal motor and sensory exam
Assessment
-
39-year-old 5, para 3 female with history of breast cancer status post bilateral mastectomy and underwent JACQUES flap reconstruction-curriculum designer consulted for postoperative critical care management 01/13/25.
History of breast cancer status post bilateral mastectomy
Status post JACQUES 01/13/25
Conditions present prior to admission:
5, para 3-3 C-sections.
Breast cancer.
Bilateral mastectomy.
ADHD.
Anxiety/depression.
Plan
The patient will be monitored in the surgical intensive care unit
Supplemental oxygen as needed
Incentive spirometry
Nebulizers if needed-currently not bronchospastic
CATERERS HELPER and plastic surgery following-correspondence reviewed
Operative records reviewed
Neurovascular checks per protocol
DVT prophylaxis
Nutrition
Early mobilization
Critical care statement: A total of 50 minutes of critical care time was provided for this patient today. This includes management of unstable vital signs, evaluation of the patient at bedside, reviewing the patient's pertinent medical records
including radiographs, microbiology, laboratory evaluations, and discussion with primary team, consultants, pharmacy, nutrition, physical therapy, case management, charge nurse, critical care nursing, and respiratory therapy.
Diagnostic data:
Data Reviewed
-
EKG: Report reviewed by me
Radiology: Report reviewed by me
Labs: Labs reviewed by me
Old Records: Requested
Critical Care Time (in minutes): 50
--- NOTE | 2025-01-13 16:07 | OR.RPT ---
Operative Report
Operative Report
Surgeon: Esteban Campbell MD
Cosurgeon: Loyd Cates MD
Structural Technician: Annemarie Cee MD
Pre-op diagnosis:
1.� Personal history of breast cancer
2. Status post bilateral mastectomies
Postop diagnosis: Same
Procedure:
1. Bilateral breast reconstruction with JACQUES flaps
2. Removal of bilateral tissue expanders without replacement
3. Bilateral partial capsulectomies
4.� Local tissue rearrangements of the bilateral chest wall totalling 32 cm2.
5. Application of disposable negative pressure incisional wound VAC
Anesthesia: General
EBL: 150 cc
Specimens:
1.�Right breast skin and soft tissue including capsule
2. Left breast skin and soft tissue including capsule
3. Left periprosthetic capsule
Drains: 4 15 Irish Gael drains
Complications: none
Indications:
This is a 39-year-old female with a past medical history significant for breast cancer with prior implant based reconstruction as well as adjuvant radiation treatment on the left. She was interested in moving forward with autologous reconstruction.
Given the anticipated bilateral JACQUES flap breast reconstruction, I was asked to be involved in her care given the complexity of the case and the need for a second surgeon to do this as safely and efficiently as possible.
Regarding bilateral free flap breast reconstruction,� she understood the nature of the surgery and all of the risk benefits alternatives were discussed at length.� Specific risks in cluded flap failure or thrombosis, hematoma, seroma, poor wound
healing and compromise to the abdominal wall.� All questions were answered and consents were signed.
Operative findings:
The patient was identified in the preoperative area and consents were confirmed. The bilateral breasts were marked out as was the elliptical infraumbilical donor site. All questions were answered. She was brought to the operating room and placed
supine on the operative table.� General anesthesia was induced with an endotracheal tube. The arms were tucked bilaterally and a Hernandez catheter was placed.� Preoperative Lovenox and antibiotics were administered, and SCDs were placed.� The patient's
bilateral breasts and abdomen were prepped and draped in normal standard fashion using chlorhexidine prep.� A timeout for patient safety was performed.
To start the procedure, Dr. Cates and I were in the abdomen to initiate the dissection of the abdominal flaps. I dissected the left abdominal flap for right breast reconstruction and Dr. Cates worked on the right abdomen for left breast
reconstruction. Dr. Cates assisted me with my portions of the case, and I assisted him with his portions of the case. Please see Dr. Cee and Dr. Cates's separately dictated operative notes. Once Dr. Cates started his intramuscular dissection
of his flap, i went up to the chest to prepare the vessels for microvascular transfer and at this time we began functioning as 2 separate teams.
In the abdomen, bilateral JACQUES flaps were dissected out. This began with incising the proposed markings superiorly and dissection with a slight bevel upwards to the level of the fascia. Undermining of the supraumbilical flap continue in the midline
above the umbilicus towards the xiphoid. The patient was then flexed at the waist and the lower incision was confirmed to be tenable without undue tension. The patient was returned supine and the lower marking was incised with a 10 blade. The flaps
were then raised laterally to medially be sure to maintain the perforating vessels above the level of the fascia.� On the right side a 4 general house worker JACQUES flap was dissected out.� On the left side a 2 general house worker JACQUES flap had been dissected out.�This
involved a tedious intramuscular dissection to minimize the amount of muscle harvested with the flap bilaterally. The pedicles were dissected down to level of the iliac vessels bilaterally.
In the chest, the the bilateral tissue expanders were removed. These were discarded bilaterally. Extensive capsulotomies and partial capsulectomies were performed bilaterally. More capsule work and capsulectomy was performed on the left as this
breast was previously radiated. Any tissue removed from the breast was sent off for pathologic evaluation bilaterally. The cartilaginous portion of the 3rd rib was then resected bilaterally and the underlying internal mammary vessels were then
meticulously and carefully dissected. Once the vessels were fully dissected circumferentially these were allowed to dilate up while attention was turned to the contralateral breast.� A pectoralis block was then performed with marcaine and a 15
Irish Gael drain was placed through a stab incision the lateral IMF.� This was secured using a 2-0 Prolene suture.
The right hemiabdominal flap was then transferred up to the left chest first. The microvascular anastomosis was then performed.� This was done using a 2.5mm data entry coordinator for the venous anastomosis.� The arterial anastomosis was performed with a handsewn
technique using 8-0 nylon suture.� Upon removal of the microvascular clamps there was excellent perfusion of the flap.� The flap was then temporarily inset with nuris and attention was turned to the contralateral side.
The left hemiabdominal flap was then transferred up to the right chest.� The microvascular anastomosis was similarly performed.� On this side a 3.5mm data entry coordinator was again utilized for the venous anastomosis.� The arterial anastomosis was performed in
the same fashion as the contralateral side.� Again there was excellent perfusion noted upon removal of the vascular clamps.
While the microvascular anastomoses were being performed, Dr. Cee was performing the abdominal wall reconstruction.� Again please see her separately dictated operative report for details. Briefly, this involved reapproximation of the muscles
that was divided.� A small piece of Phasix mesh was inset as a underlay with primary fascial closure.� The fascia was closed with interrupted PDS sutures.�
A TAP block was performed bilaterally for postoperative analgesia.� Two 15 Irish Gael drains were placed in the abdomen.� These were similarly secured using 2-0 Prolene sutures.� The abdominal wall was then closed in a layered fashion.� 2-0 Vicryl
suture was utilized in the Christiano's fascia.� The Insorb dermal stapler was then utilized for reapproximation of the deep dermis.� The superficial skin was then closed using 4-0 Monocryl suture.� The umbilicus was transposed.� This was inset using a
combination of 3-0 Monocryl in the deep dermis and 4-0 vicrl rapide suture superficially. A CHRISTINA incisional wound VAC was applied superficially to maximize wound healing.
The JACQUES flaps were then inset. Local tissue rearrangements were performed bilaterally to modify the mastectomy skin flaps and use the abdominal skin for an areolar reconstruction. This measured 4 x 4 cm on each side for a total of 32cm2. The skin
was then closed in a layered fashion using 3-0 and 4-0 Monocryl suture.� The JACQUES flaps were de-epithelialized in all areas that would not be exposed prior to closure.
Doppler signals were identified on both skin islands and there was good punctate bleeding at time of deepithelialization. Signals were marked with 5-0 prolenes.
The wounds were then all dressed and the patient was extubated uneventfully.� All counts were correct at the the completion of the case.� The patient tolerated the procedure very well.� She had an excellent cosmetic outcome.� The patient was then
transferred to the ICU for postoperative�monitoring.
Dr. Cates was my cosurgeon for this case. His status as a cosurgeon was medically necessary to allow us to function as 2 separate teams working in separate anatomic sites simultaneously. This was necessary to maximize the safety and efficiency of
this operation for the patient.
Dr. Annemarie Cee was our human resources office assistant for this case.� Her assistance was critical and medically necessary to allow us to perform this in a safe and timely manner for this patient.� She assisted with retraction, execution, and closure of this case. She
also was responsible for the abdominal wall reconstruction as a primary surgeon.
--- NOTE | 2025-01-13 16:07 | OR.RPT ---
Addendum entered and electronically signed by Annemarie Cee MD 01/19/25 15:51:
Date of Operation is 01/13/25
Addendum entered and electronically signed by Annemarie Cee MD 01/13/25 16:26:
There is an error in the report in that another patient is named, Kim Faria;this should be
disregarded.
Original Note:
Operative Report
Operative Report
[facility]
[address] [place] [id number]

Patient Name: KIM FARIA
: 06/22/1978
Unit Number: [id number]
Age: 46/Gender: F
Patient
Location: ICU
Medical Records
Signed
~
Operative Report
Pre-Op DX: Left breast cancer S/P bilateral mastectomies, left sentinel node mapping and biopsy and tissue environmental specialist insertion
Post-Op DX:Left breast cancer S/P bilateral mastectomies left sentinel node mapping and biopsy and tissue environmental specialist insertion
Procedure: Abdominal wall repair with mesh
Surgeon: Coleman
The patient is a 39 Y/O female who previously underwent bilateral mastectomies for the treatment of left breast carcinoma. She underwent immediate
implant based reconstruction and required post mastectomy radiation 6 months ago and presents now for reconstruction with bilateral JACQUES flaps to
be performed by Drs. Cates and Shannan. I was present throughout the entire case to assist and perform the
abdominal wall reconstruction as the Plastic Surgeons are not credentialed in General Surgery.
After the tissue flaps were harvested, two abdominal wall defects in the anterior abdominal wall had been created both measuring 3 x 15 cm. Two portions of Phasix mesh
cut to the bilateral defect size of 15 x 3 cm were fashioned and placed under the anterior rectus abdominis muscle sheath on each side. The anterior abdominal
wall fascia was reapproximated with interupted figure of eight 0-PDS suture. Then an 0-Stratifix suture was used to oversew the repairs on both sides.
This resulted in low tension on the anterior abdominal wall.
The remaining soft tissue and skin closure was performed as described in the Plastic Surgical dictation.
([id number])
--- NOTE | 2025-01-13 16:27 | W.IMMPOSTOP ---
Surgical Immed Post Op Note
-
Primary Surgeon: MARI Cates MD
Assisting Surgeon: Shannan GIBSON, Coleman GIBSNO
Pre-op Diagnosis: History of breast cancer, status post bilateral surgical absence of breast, status post radiation
Post-op Diagnosis: Same
Procedure Performed: Bilateral delayed breast reconstruction with D IEP flaps, removal of tissue expanders
Anesthesia Type: General
Specimen / Cultures: Per Dr. Cee
Estimated Blood Loss: 150 cc
Complications: None
Operative Findings: As expected
--- NOTE | 2025-01-13 16:28 | OR.RPT ---
Operative Report
Operative Report
Date of Surgery: 01/13/25
Surgeon: Loyd Cates MD
Cosurgeon:Esteban Campbell MD
Cuffer: Annemarie Cee MD
Pre-op diagnosis:
1.� Personal history of breast cancer
2. Status post bilateral mastectomies
3. H/o radiation
Postop diagnosis: Same
Procedure:
1. Bilateral breast reconstruction with JACQUES flaps
2. Removal of bilateral tissue expanders without replacement
3. Bilateral partial capsulectomies
4.� Local tissue rearrangements of the bilateral chest wall totalling 32 cm2.
5. Application of disposable negative pressure incisional wound VAC
Anesthesia: General
EBL: 150 cc
Specimens:
1.�Right breast skin and soft tissue including capsule
2. Left breast skin and soft tissue including capsule
3. Left periprosthetic capsule
Drains: 4 15 British Gael drains
Complications: none
Indications:
This is a 39-year-old female with a past medical history significant for breast cancer with prior implant based reconstruction as well as adjuvant radiation treatment on the left. She was interested in moving forward with autologous reconstruction.
Given the anticipated bilateral JACQUES flap breast reconstruction, I asked Dr. Campbell to be involved in her care given the complexity of the case and the need for a second surgeon to do this as safely and efficiently as possible.
Regarding bilateral free flap breast reconstruction,� she understood the nature of the surgery and all of the risk benefits alternatives were discussed at length.� Specific risks included flap failure or thrombosis, hematoma, seroma, poor wound
healing and compromise to the abdominal wall.� All questions were answered and consents were signed.
Operative findings:
The patient was identified in the preoperative area and consents were confirmed. The bilateral breasts were marked out as was the elliptical infraumbilical donor site. All questions were answered. She was brought to the operating room and placed
supine on the operative table.� General anesthesia was induced with an endotracheal tube. The arms were tucked bilaterally and a Hernandez catheter was placed.� Preoperative Lovenox and antibiotics were administered, and SCDs were placed.� The patient's
bilateral breasts and abdomen were prepped and draped in normal standard fashion using chlorhexidine prep.� A timeout for patient safety was performed.
To start the procedure, Dr. Campbell and I were in the abdomen to initiate the dissection of the abdominal flaps. I dissected the right abdominal flap for left breast reconstruction and Dr. Campbell worked on the left abdomen for right breast
reconstruction. Dr. Campbell assisted me with my portions of the case, and I assisted him with his portions of the case. Please see Dr. Cee and Dr. Campbell's separately dictated operative notes. Once Dr. Campbell started his intramuscular dissection of
his flap, I went up to the chest to prepare the vessels for microvascular transfer and at this time we began functioning as 2 separate teams.
In the abdomen, bilateral JACQUES flaps were dissected out. This began with incising the proposed markings superiorly and dissection with a slight bevel upwards to the level of the fascia. Undermining of the supraumbilical flap continue in the midline
above the umbilicus towards the xiphoid. The patient was then flexed at the waist and the lower incision was confirmed to be tenable without undue tension. The patient was returned supine and the lower marking was incised with a 10 blade. The flaps
were then raised laterally to medially be sure to maintain the perforating vessels above the level of the fascia.� On the right side a 4 pearl glue operator JACQUES flap was dissected out.� On the left side a 2 pearl glue operator JACQUES flap had been dissected out.�This
involved a tedious intramuscular dissection to minimize the amount of muscle harvested with the flap bilaterally. The pedicles were dissected down to level of the iliac vessels bilaterally.
In the chest, the the bilateral tissue expanders were removed. These were discarded bilaterally. Extensive capsulotomies and partial capsulectomies were performed bilaterally. More capsule work and capsulectomy was performed on the left as this
breast was previously radiated. Any tissue removed from the breast was sent off for pathologic evaluation bilaterally. The cartilaginous portion of the 3rd rib was then resected bilaterally and the underlying internal mammary vessels were then
meticulously and carefully dissected. Once the vessels were fully dissected circumferentially these were allowed to dilate up while attention was turned to the contralateral breast.� A pectoralis block was then performed with marcaine and a 15
British Gael drain was placed through a stab incision the lateral IMF.� This was secured using a 2-0 Prolene suture.
The right hemiabdominal flap was then transferred up to the left chest first. The microvascular anastomosis was then performed.� This was done using a 2.5mm life assurance representative for the venous anastomosis.� The arterial anastomosis was performed with a handsewn
technique using 8-0 nylon suture.� Upon removal of the microvascular clamps there was excellent perfusion of the flap.� The flap was then temporarily inset with nuris and attention was turned to the contralateral side.
The left hemiabdominal flap was then transferred up to the right chest.� The microvascular anastomosis was similarly performed.� On this side a 3.5mm life assurance representative was again utilized for the venous anastomosis.� The arterial anastomosis was performed in
the same fashion as the contralateral side.� Again there was excellent perfusion noted upon removal of the vascular clamps.
While the microvascular anastomoses were being performed, Dr. Cee was performing the abdominal wall reconstruction.� Again please see her separately dictated operative report for details. Briefly, this involved reapproximation of the muscles
that was divided.� A small piece of Phasix mesh was inset as a underlay with primary fascial closure.� The fascia was closed with interrupted PDS sutures.�
A TAP block was performed bilaterally for postoperative analgesia.� Two 15 British Gael drains were placed in the abdomen.� These were similarly secured using 2-0 Prolene sutures.� The abdominal wall was then closed in a layered fashion.� 2-0 Vicryl
suture was utilized in the Christiano's fascia.� The Insorb dermal stapler was then utilized for reapproximation of the deep dermis.� The superficial skin was then closed using 4-0 Monocryl suture.� The umbilicus was transposed.� This was inset using a
combination of 3-0 Monocryl in the deep dermis and 4-0 vicrl rapide suture superficially. A CHRISTINA incisional wound VAC was applied superficially to maximize wound healing.
The JACQUES flaps were then inset. Local tissue rearrangements were performed bilaterally to modify the mastectomy skin flaps and use the abdominal skin for an areolar reconstruction. This measured 4 x 4 cm on each side for a total of 32cm2. The skin
was then closed in a layered fashion using 3-0 and 4-0 Monocryl suture.� The JACQUES flaps were de-epithelialized in all areas that would not be exposed prior to closure.
Doppler signals were identified on both skin islands and there was good punctate bleeding at time of deepithelialization. Signals were marked with 5-0 prolenes.
The wounds were then all dressed and the patient was extubated uneventfully.� All counts were correct at the the completion of the case.� The patient tolerated the procedure very well.� She had an excellent cosmetic outcome.� The patient was then
transferred to the ICU for postoperative�monitoring.
Dr. Campbell was my cosurgeon for this case. His status as a cosurgeon was medically necessary to allow us to function as 2 separate teams working in separate anatomic sites simultaneously. This was necessary to maximize the safety and efficiency of
this operation for the patient.
Dr. Annemarie Cee was our marketing operations assistant for this case.� Her assistance was critical and medically necessary to allow us to perform this in a safe and timely manner for this patient.� She assisted with retraction, execution, and closure of this case. She
also was responsible for the abdominal wall reconstruction as a primary surgeon.
--- NOTE | 2025-01-13 16:30 | PTCARENOTE ---
Arrived to the room with OR nurse and anesthesia, monitored, IVF Oxygen 2 liters nasal cannula via bed. She is drowsy, and informed of the plan of care regarding settling her into the ICU, and the post op care. Handoff paddle check performed.
Initially paddles cool as was her body temperature. Left breast paddle with weak signal, then when Dr. Cates arrived they were improved. He removed the ABD dressings to her breasts that was secured with 1' SILK TAPE. New abd placed over B/L
breasts, ointment intact over her breast incisions, may apply ointment as needed per Dr. Cates. Lower abdominal/suprapubic incision covered with CHRISTNIA dressing, light blinking orange. Dr. Cates ia aware and no intervention needed per Dr. Cates.
Dressing CDI. She has #4 15fr Gael drains (B/L breasts & R & L lower abdomen) to bulb suction with SS drainage. She is reporting what she described as muscle spasms in her lower abdomen, Valium given as ordered, Nausea ensued, Zofran then Compazine
given when nausea not resolved. LR@125ml/hr infusing via right hand #20g protective catheter. Right AC#20g protective catheter flushed and patent. Lungs diminished but CTA. Poor inspiratory effort. She was informed to take slow deep breaths. She
demonstrated, then had a moist non productive cough. She was maintained in a beach chair position, and informed of the rationale. Safe environment maintained. Call cevallos within reach.
[2025-01-13] MEDS: ZOFRAN 4 MG IV ×2 (16:51→20:45)
[2025-01-13] MEDS: LR 1000 IV (16:51)
[2025-01-13] MEDS: VALIUM 5 MG PO ×2 (16:56→22:19)
[2025-01-13] MEDS: COMPAZINE 5 MG IV (17:27)
[2025-01-13 17:49] LABS: Glucose - Point of Care 179 mg/dl (70-99)
[2025-01-13] MEDS: ROXICODONE 5 MG PO (18:00)
--- NOTE | 2025-01-13 19:08 | PTCARENOTE ---
Her Donnell was provided an update over the phone. No questions at this time. He will text her in the morning.
[2025-01-13] MEDS: DILAUDID 1 MG IV (20:42)
[2025-01-13 20:58] LABS: Hematocrit 31.8 % (37.0-47.0); Hemoglobin 11.2 g/dL (12.0-16.0); Mean Corp Hgb Conc. 35.2 g/dL (33.0-37.0); Mean Corpuscular Hgb 32.5 pg (27.0-31.0); Mean Corpuscular Volume 92.2 fL (81.0-99.0); Mean Platelet Volume 9.3 fL (7.4-10.4); Platelet Count 233 10^3/uL (130-400); Red Blood Cell Count 3.45 10^6/uL (4.20-5.40); Red Cell Dist. Width 11.9 % (11.5-14.5); White Blood Cell Count 15.1 10^3/uL (4.8-10.8)
[2025-01-13 21:09] LABS: INR 1.19; PT 15.6 Sec (11.4-14.6)
[2025-01-13 21:12] LABS: Blood Urea Nitrogen 8 mg/dl (7-17); Calcium 7.8 mg/dl (8.4-10.2); Carbon Dioxide 25 mmol/L (22-30); Chloride 106 mmol/L (98-107); Estimated Creatinine Clearance 124 ml/min; Glucose 141 mg/dl (70-99); Magnesium 2.1 mg/dl (1.6-2.3); Phosphorus 4.1 mg/dl (2.5-4.5); Potassium 3.9 mmol/L (3.5-5.1); Sodium 139 mmol/L (135-145); eGFR > 60.00
--- NOTE | 2025-01-13 21:23 | PTCARENOTE ---
Pt received at 19:00. Bedside handoff completed with breast paddle checks. Doppler signals present, skin pale/pink, L breast with firm area at 11o'clock--unchanged, L breast larger than R--unchanged. Abdominal CHRISTINA dressing intact, poor seal--Paliga
aware, no drainage on dressing. C/O 8/10 pain to lower abdomen and L breast/axilla area with light touch, Paliga aware, tethered scar released. x1 1mg dilaudid given IVP, pt nauseated with dose, PRN zofran given, both dilaudid and zofran effective.
Pt Ox3, pleasant. SR, 70s-80s, palpable pulses. Castillo hugger for goal temp 100.3, core temp 99.4 at this time. 2L NC 98-99%, breath sounds clear t/o. Bowel sounds absent, abdomen soft. Hernandez in place, yellow urine, adequate output--approx 50ml/hr. x4
ZARI drains, serousanguineous output, q4h strip and drain. LR infusing @ 125ml/hr. Pt in beach chair position, repositioned q2h, call cevallos within reach.
[2025-01-13] MEDS: NEURONTIN 300 MG PO (22:19)
[2025-01-13] MEDS: TYLENOL 1000 MG PO (22:19)
[2025-01-14] VITALS (32 sets, daily range): BP systolic 94–122; BP diastolic 53–104; BMI 26.3
[2025-01-14] MEDS: ANCEF 5 IV ×3 (00:24→15:12)
[2025-01-14] MEDS: LR 1000 IV ×2 (00:24→07:34)
[2025-01-14] MEDS: VALIUM INJECTION 2 MG IV (00:45)
[2025-01-14] MEDS: ROXICODONE 5 MG PO ×5 (00:49→17:45)
--- NOTE | 2025-01-14 02:58 | PTCARENOTE ---
Patient c/o urge to void, x1 order 2mg valium IVP given. States urge to void improved, urine output 150-175/hr currently. Safe environment maintained, call cevallos within reach.
[2025-01-14 03:43] LABS: Hematocrit 28.6 % (37.0-47.0); Mean Corpuscular Hgb 32.5 pg (27.0-31.0); Mean Corpuscular Volume 92.9 fL (81.0-99.0); Mean Platelet Volume 9.1 fL (7.4-10.4); Platelet Count 202 10^3/uL (130-400); Red Blood Cell Count 3.08 10^6/uL (4.20-5.40); Red Cell Dist. Width 12.1 % (11.5-14.5); White Blood Cell Count 9.7 10^3/uL (4.8-10.8)
[2025-01-14 04:12] LABS: Blood Urea Nitrogen 9 mg/dl (7-17); Carbon Dioxide 28 mmol/L (22-30); Chloride 107 mmol/L (98-107); Estimated Creatinine Clearance 124 ml/min; Glucose 119 mg/dl (70-99); Potassium 3.6 mmol/L (3.5-5.1); Sodium 139 mmol/L (135-145); eGFR > 60.00
[2025-01-14] MEDS: SENOKOT 8.6 MG PO ×2 (07:04→21:27)
[2025-01-14] MEDS: PROCARDIA XL (EXTENDED RELEASE) 30 MG PO (07:04)
[2025-01-14] MEDS: COLACE 100 MG PO ×3 (07:04→21:27)
[2025-01-14] MEDS: WELLBUTRIN XL (24 hour extended release) 150 MG PO (07:04)
[2025-01-14] MEDS: TYLENOL 1000 MG PO ×4 (07:04→21:26)
[2025-01-14] MEDS: VALIUM 5 MG PO ×4 (07:04→21:26)
--- NOTE | 2025-01-14 07:43 | PTCARENOTE ---
pt received from previous rn- bedside handoff completed and paddle checks with previous rn. Doppler signs present, skin pale/pink, warm to touch. L breast with firm area at 11 o'clock-unchanged, L breast larger than R-unchanged from previous shift.
Abdominal CHRISTINA dressing intact, poor seal, small drainage noted unchanged from last shift. pt with arcelia hugger on, see temps as documented. pt aox4, nsr on monitor, room air. c/o of abdominal pain at this time, scheduled meds given. pt states
passing flatus, tolerating clears, kohler draining yellow urine. 4 jps with serosanguineous drainage. pt in beach chair positioned, repositioned, all safety precautions in place, call cevallos within reach.
--- NOTE | 2025-01-14 07:50 | W.PN.INTV ---
Today's Communication / Plan
Recommendations
Increase activity
Wean FiO2
Incentive spirometry
JACQUES protocol
Continue vascular checks
Assessment
-
39-year-old 5, para 3 female with history of breast cancer status post bilateral mastectomy and underwent JACQUES flap reconstruction-timber repairer consulted for postoperative critical care management 01/13/25.
History of breast cancer status post bilateral mastectomy
Status post JACQUES 01/13/25
Conditions present prior to admission:
5, para 3-3 C-sections.
Breast cancer.
Bilateral mastectomy.
ADHD.
Anxiety/depression.
Plan
The patient remains critical with frequent vascular checks needed
Supplemental oxygen as needed
Incentive spirometry
Nebulizers if needed-currently not bronchospastic
RESIDENTIAL ENERGY AUDITOR and plastic surgery following-correspondence reviewed
Operative records reviewed
Neurovascular checks per protocol
Analgesia per surgery
DVT prophylaxis-on Lovenox
Nutrition
Early mobilization
Critical care statement: A total of 38 minutes of critical care time was provided for this patient today. This includes management of unstable vital signs, evaluation of the patient at bedside, reviewing the patient's pertinent medical records
including radiographs, microbiology, laboratory evaluations, and discussion with primary team, consultants, pharmacy, nutrition, physical therapy, case management, charge nurse, critical care nursing, and respiratory therapy.
Diagnostic data:
Chest x-ray 01/13/25-NAD
Subjective Dataa
Subjective Data
Date of Service:
Date of Service: January 14, 2025
Chief Complaint: Ed Case Manager Follow Up and Pulmonary Follow Up
Subjective:
doing well, vascular checks in order, no complaints of shortness of breath, chest congestion, productive cough, abdominal pain with exception of incisional
Review of Systems
General: Other ( per HPI)
Objective Data
Data Reviewed
Vital Signs / I&O / Oxygen:
Vital Signs
Temp Pulse Resp BP Pulse Ox
98.5 F 77 13 102/61 96
01/14/25 07:31 01/14/25 07:04 01/14/25 06:45 01/14/25 07:04 01/14/25 07:28
Intake and Output
01/13/25 01/14/25 01/15/25
06:59 06:59 06:59
Intake Total 2235 / 2360 125 / 125
Output Total 1506 / 1706 200 / 200
Balance 729 / 654 -75 / -75
SaO2 96
Nasal Cannula flow liters per 2
minute
Physical Exam
General: Respiratory Distress (n) and Comfortable
HEENT: Normocephalic, Anicteric and Moist Mucous Membranes
Cardiovascular: Regular Rhythm
Respiratory: Wheeze (n), Crackles (n), Rhonchi, Non-Labored Respirations, Accessory Resp Muscle Use (n) and Stridor (n)
GI: Soft, Non Distended and Non Tender
Neurology: Awake, Alert and No Motor Deficits
Skin: Warm, Good Color, Cyanosis (n), Jaundice (n) and Rash (n)
Labs/Micro/Reports
Lab Data
01/14/25 03:35
01/14/25 03:35
Laboratory Results
01/13/25
20:30
PT 15.6 H
INR 1.19
APTT 26.0
--- NOTE | 2025-01-14 08:39 | SUR.PHASEI ---
pt oob to chair, kohler removed at 0830. Dr. Cates aware of pts pain level.
--- NOTE | 2025-01-14 09:40 | W.PN.PLAS ---
Today's Communication
-
OOB to chair
kohler out
SCDs/ ppx lovenox
reg diet
DC fluids
Progress Note
Objective Data
Vital Signs
Temp Pulse Resp BP Pulse Ox
98.5 F 85 20 110/68 96
01/14/25 07:31 01/14/25 09:00 01/14/25 09:00 01/14/25 09:00 01/14/25 09:00
Intake and Output
01/13/25 01/14/25 01/15/25
06:59 06:59 06:59
Intake Total 2235 / 2360 375 / 375
Output Total 1506 / 1706 427 / 427
Balance 729 / 654 -52 / -52
Intake:
Oral fluids 360 / 360
IV fluids (Total) 1874 375 / 375
Lr 1,000 ml @ 125 mls/hr IV . 1874 375 / 375
Q8H SARITA Rx#:[id number]
Output:
Drain Output (Total) 156 / 156 27 / 27
Left Breast [facility]
Left Lower Abdomen [facility] 63 / 63
[place]
Right Breast [facility] 18 / 18 2 / 2
Right Lower Abdomen [facility] 44 / 44 5 / 5
Casey
Urine, Kohler 1350 / 1550 400 / 400
Physical exam:
No acute distress
No creased work of breathing
Bilateral breast as well perfused in appearance
Doppler signals intact
No evidence of venous congestion
Abdominal dressing intact
Drain serosanguineous with appropriate output
Lab Results
01/14/25 03:35
01/14/25 03:35
Assessment / Plan
Postop day 1 from bilateral delayed D IEP flap breast reconstruction and removal of tissue expanders
Expected dilutional anemia
Free flap breast reconstruction protocol
--- NOTE | 2025-01-14 09:45 | PTCARENOTE ---
Dr. Cates aware of noted drainage on abdominal dressing and 11oclock firm spot on left breast, no further orders. ok to d/c arcelia mary.
--- NOTE | 2025-01-14 09:45 | PTCARENOTE ---
Dr. Cates at bedside, ivf dc per order. abdominal binder on and intact, pt states relief with binder on. assessment unchanged.
--- NOTE | 2025-01-14 10:08 | W.PN.UPDATE ---
Update Note
Progress Note Update
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
bilateral mastectomies, left sentinel node mapping and biopsy and elevator runner placement. She completed post mastectomy radiation and presented yesterday for
reconstruction with bilateral JACQUES flaps. She is up out of bed c/o pain mostly in the abdominal region. Ate small amount of solid food. Flaps viable and doing well.
Continue post- JACQUES protocol.
[2025-01-14] MEDS: MIRALAX 17 GRAMS PO (10:32)
--- NOTE | 2025-01-14 11:13 | CM ---
Patient seen at bedside in ICU. Patient stated that she does not anticipate needs at discharge but physician consult is for [facility]. Patient agreed to accept and reuqested CM send referral to [facility]. CM sent tt to Liaison and await response. Patient PCP is
Dr. Omalley and she uses the [facility] in [place]. Patient stated her will provide transportation and Plan is for return home with [facility]N pending acceptance. CM will continue to follow for discharge planning needs.
Plan; home with [facility] pending confirmation of acceptance.
--- NOTE | 2025-01-14 12:13 | VNURNOTE ---
Home Health Liaison met with patient at bedside to discuss [facility] nurse/therapy, visits, schedule and homebound status. Patient is agreeable and understands that visits at home will be 2-3 x per week to assess and teach medical and drain management.
[facility] after discharge from .
[facility] referral completed in Care Port.
--- NOTE | 2025-01-14 12:27 | PTCARENOTE ---
pt tolerated being oob for 3 hours, voided, back in bed. assessment unchanged.
[2025-01-14] MEDS: NON-FORMULARY ITEM 20 MG PO (14:29)
--- NOTE | 2025-01-14 15:28 | PTCARENOTE ---
Addendum entered by Louisa Chapin RN 01/14/25 15:29:
pt educated on emptying christiana drains, verbalized understanding.
Original Note:
drains stripped and emptied q4h per order, all 4 remain with serosangineous drainage. paddle checks unchanged. pt back oob to chair, ambulating to bathroom without difficulty. assessment unchanged.
[2025-01-14] MEDS: LOVENOX 40 MG SC (17:40)
[2025-01-14] MEDS: NEURONTIN 300 MG PO (21:27)
--- NOTE | 2025-01-14 22:55 | PTCARENOTE ---
Pt received at 19:00, hand off breast paddle checks completed--pink, body temp, good signals. Steady gait when ambulating to the bathroom. x4 ZARI drains with serosanguineous output. Safe environment maintained, call cevallos within reach, plan of care
continues.
[2025-01-15] VITALS (29 sets, daily range): BP systolic 106–131; BP diastolic 68–102; PULSE 88; BMI 26.2
[2025-01-15] MEDS: ROXICODONE 5 MG PO ×4 (00:51→18:23)
[2025-01-15] MEDS: VALIUM 5 MG PO ×4 (04:44→21:19)
--- NOTE | 2025-01-15 05:12 | PTCARENOTE ---
Pt assessment unchanged. Safe environment maintained, call cevallos within reach.
[2025-01-15 05:38] LABS: Hemoglobin 10.6 g/dL (12.0-16.0)
[2025-01-15 05:56] LABS: Blood Urea Nitrogen 8 mg/dl (7-17); Calcium 8.4 mg/dl (8.4-10.2); Carbon Dioxide 29 mmol/L (22-30); Chloride 107 mmol/L (98-107); Estimated Creatinine Clearance 124 ml/min; Glucose 93 mg/dl (70-99); Potassium 3.7 mmol/L (3.5-5.1); Sodium 142 mmol/L (135-145); eGFR > 60.00
[2025-01-15] MEDS: SENOKOT 8.6 MG PO ×2 (08:13→21:19)
[2025-01-15] MEDS: WELLBUTRIN XL (24 hour extended release) 150 MG PO (08:13)
[2025-01-15] MEDS: MIRALAX 17 GRAMS PO (08:13)
[2025-01-15] MEDS: TYLENOL 1000 MG PO ×4 (08:13→22:22)
[2025-01-15] MEDS: COLACE 100 MG PO ×3 (08:13→21:20)
[2025-01-15] MEDS: NON-FORMULARY ITEM 20 MG PO (08:14)
[2025-01-15] MEDS: PROCARDIA XL (EXTENDED RELEASE) 30 MG PO (08:14)
--- NOTE | 2025-01-15 08:55 | W.PN.INTV ---
Today's Communication / Plan
Recommendations
Continue Dopplers/vascular checks every hour
Incentive spirometry
Increase activity
Assessment
-
39-year-old 5, para 3 female with history of breast cancer status post bilateral mastectomy and underwent JACQUES flap reconstruction-creative lead consulted for postoperative critical care management 01/13/25.
History of breast cancer status post bilateral mastectomy
Status post JACQUES 01/13/25
Conditions present prior to admission:
5, para 3-3 C-sections.
Breast cancer.
Bilateral mastectomy.
ADHD.
Anxiety/depression.
Plan
Continues to require intensive care unit with frequent vascular checks needed
Supplemental oxygen as needed
Incentive spirometry encouraged
Nebulizers if needed-currently not bronchospastic
NURSING INFORMATICS SPECIALIST and plastic surgery following-correspondence reviewed
Operative records reviewed
Neurovascular checks per protocol
Analgesia per surgery
DVT prophylaxis-on Lovenox
Nutrition
Early mobilization
Patient likely will be discharged out of ICU 01/16/2025 at which time creative lead will sign off
Reviewed the patient's pertinent medical records including radiographs, microbiology, laboratory evaluations, and discussion with primary team, consultants, pharmacy, nutrition, physical therapy, case management, charge nurse, critical care
nursing, and respiratory therapy.
Diagnostic data:
Chest x-ray 01/13/25-NAD
Subjective Dataa
Subjective Data
Date of Service:
Date of Service: January 15, 2025
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
Subjective:
out of bed, pain controlled, no complaints of shortness of breath
Review of Systems
General: Other ( Per HPI)
Objective Data
Data Reviewed
Vital Signs / I&O / Oxygen:
Vital Signs
Temp Pulse Resp BP Pulse Ox
97.8 F 95 18 127/83 95
01/15/25 07:34 01/15/25 08:14 01/15/25 06:45 01/15/25 08:14 01/14/25 12:00
Intake and Output
01/14/25 01/15/25 01/16/25
06:59 06:59 06:59
Intake Total 2235 / 2360 375 / 375
Output Total 1506 / 1706 3123 / 3123
Balance 729 / 654 -2748 / -2748
SaO2 95
Nasal Cannula flow liters per 99
minute
Physical Exam
General: Respiratory Distress (n) and Comfortable
HEENT: Normocephalic, Anicteric and Moist Mucous Membranes
Cardiovascular: Regular Rhythm
Respiratory: Wheeze (n), Crackles (n), Rhonchi, Non-Labored Respirations, Accessory Resp Muscle Use (n) and Stridor (n)
GI: Soft, Non Distended and Non Tender
Neurology: Awake, Alert and No Motor Deficits
Skin: Warm, Good Color, Cyanosis (n), Jaundice (n) and Rash (n)
Labs/Micro/Reports
Lab Data
01/15/25 05:05
01/15/25 05:05
--- NOTE | 2025-01-15 09:00 | W.PN.PLAS ---
Today's Communication
-
Out of bed ambulate
Prophylactic Lovenox, SCDs
P.o. pain control
Regular diet
Case management
PT OT
Progress Note
Subjective Data
Doing well
Subjective: Tolerating Regular Diet, Ambulatory and Hernandez Removed
Objective Data
Vital Signs
Temp Pulse Resp BP Pulse Ox
98.6 F 71 17 128/79 97
01/16/25 07:21 01/16/25 08:00 01/16/25 08:00 01/16/25 08:00 01/15/25 21:50
Intake and Output
01/15/25 01/16/25 01/17/25
06:59 06:59 06:59
Intake Total 375 / 375 1850 / 1850
Output Total 3123 / 3123 3392 / 3392 200 / 200
Balance -2748 / -2748 -1542 / -1542 -200 / -200
Intake:
Oral fluids 1850 / 1850
IV fluids (Total) 375 / 375
Lr 1,000 ml @ 125 mls/hr IV . 375 / 375
Q8H SARITA Rx#:[id number]
Output:
Drain Output (Total) 273 / 273 172 / 172
Left Breast [facility]y 114 / 114 37 / 37
Left Lower Abdomen Saleem- 89 / 89 66 / 66
Casey
Right Breast [facility]y 24 / 24 20 / 20
Right Lower Abdomen Saleem- 46 / 46 49 / 49
Casey
Urine, Hernandez 400 / 400 300 / 300
Urine, Voided 2450 / 2450 2920 / 2920 200 / 200
Other:
Number of approximated SMALL 1
amounts of urine
Physical exam:
No acute distress
No creased work of breathing
Bilateral breast as well perfused in appearance
Doppler signals intact
No evidence of venous congestion
Abdominal dressing intact
Drain serosanguineous with appropriate output
Lab Results
01/16/25 04:44
01/16/25 04:44
Assessment / Plan
Postop day 2 from bilateral delayed JACQUES flap breast reconstruction and removal of tissue expanders
Expected dilutional anemia
Free flap breast reconstruction protocol
--- NOTE | 2025-01-15 09:00 | PTCARENOTE ---
Addendum entered by Maria A Jon RN 01/15/25 20:16:
5 mg Roxicodone po given- not 2.5 mg as documented.
Original Note:
Rec'd pt at 0700- paddle checks completed with off going RN. Rec'd pt awake alert and oriented resting in bed in beach chair position. Overall states she is feeling ok - admits to 8/10 abd discomfort- some lower abd and some upper abd- describes it
as a tightness/soreness. Medicated at 0815 with Roxicodone 2.5 mg po for pain. Skin is pink wm and dry- Bilateral breast incisions approximated, Paddles are pink and warm/body temperature. Soft to touch. Good doppler signals. Open to air. L breast
is sl larger than the R. Lower abd incision with dressing and tegadrerm over with CHRISTINA dressing in place. CHRISTINA drain flashing orange. Dressing is intact- small amt of old drainage. Umbilical dressing is D+I with tegaderm over. X4 ZARI drains intact R
and L lateral chest and R and L lower abd all draining serosang drainage to bulb suction. Stripped and emptied as ordered. Respirs are unlabored on RA with sats of 98%- BS are sl decreased at the R base otherwise clear. Sats are 100%. Using IS and
getting between 7424-6650 mls. Monitor SR. + pulses. No edema. KH SCD's in place. Abd is soft with + BS.Denies nausea currently. Assisted with minimal assist oob to the bathroom and voided yellow urine. Pt did own mouth and kathie care. Pt then
ambulated to the chair and is resting in the beach chair position for breakfast. Call cevallos in reach. Plan of care and instructions to keep slightly hunched over when ambulating reviewed. Call cevallos in reach.
[2025-01-15] MEDS: ZOFRAN 4 MG IV (10:13)
[2025-01-15] MEDS: FLUSH (NSS) 1 FLUSH IV (10:14)
--- NOTE | 2025-01-15 10:20 | PTCARENOTE ---
Pt tolerated sitting oob well. Used the bathroom to void yellow urine. Stood in the bathroom and with assistance CHG bath given. Pt did admit with standing for several minutes for care that she started to feel a little nauseated and sl dizzy- once
back in bed the dizziness subsided but admitted to the nausea. Medicated with Zofran 4 mg IV. Po Valium given as ordered. Currently resting back in bed. Call cevallos in reach. Beach chair postion maintained.
--- NOTE | 2025-01-15 13:00 | PTCARENOTE ---
Assisted oob around 1215 to work with physical therapy. Ambulated with therapy, used the bathroom then assisted back into the chair for lunch. Breast paddle checks have been unchanged. Signals are good. Incisions are unchanged. Assessment overall is
unchanged. States nausea is better but that with the movement that her abd was sore. Tylenol given as ordered and Pt also medicated at her request with Roxicodone 2.5 mg po for 6/10 abd discomfort. Call cevallos in reach.
--- NOTE | 2025-01-15 13:00 | PTCARENOTE ---
Assisted oob around 1215 to work with physical therapy. Ambulated with therapy, used the bathroom then assisted back into the chair for lunch. Breast paddle checks have been unchanged. Signals are good. Incisions are unchanged. Assessment overall is
unchanged. States nausea is better but that with the movement that her abd was sore. Tylenol given as ordered and Pt also medicated at her request with Roxicodone 5 mg po for 6/10 abd discomfort. Call cevallos in reach.
--- NOTE | 2025-01-15 14:30 | PTCARENOTE ---
Assisted back to bed. No changes. Good appetite for lunch.
--- NOTE | 2025-01-15 16:30 | PTCARENOTE ---
Assisted oob to the bathroom then back oob to the chair. Gait is steady. VS as documented. No changes in assessment.
[2025-01-15] MEDS: LOVENOX 40 MG SC (18:21)
--- NOTE | 2025-01-15 18:30 | PTCARENOTE ---
Good appetite for dinner. Voided then assisted back to bed. Pt remedicated at 1825 with Roxicodone 5 mg po for 6 abd discomfort. No other changes in assessment. Breast paddles unchanged.
[2025-01-15] MEDS: NEURONTIN 300 MG PO (21:19)
--- NOTE | 2025-01-15 22:26 | PTCARENOTE ---
Assumed care of pt at 1900. Breast paddle checks/pulses done in tandem with offgoing RN, see breast paddle flowsheet for ongoing assessment documentation. Pt is A/O x4, pleasant and cooperative with care. Has been ambulating to bathroom with minimal
assistance (only to unplug/maneuver equipment). x4 ZARI drains all with serosanguinous drainage, stripped/emptied, see drain and I&O flowsheets for further details. Physical assessment as documented in nursing shift assessment flowsheet. Has been SR
70s on monitor. Reports pain is controlled with oxycodone, discussed plan for pain mgt overnight, pt has also received scheduled Valium, gabapentin, and Tylenol. Call cevallos and personal items within reach.
[2025-01-16] VITALS (12 sets, daily range): BP systolic 106–128; BP diastolic 71–84
[2025-01-16] MEDS: ROXICODONE 5 MG PO ×3 (00:25→09:13)
--- NOTE | 2025-01-16 00:56 | PTCARENOTE ---
Assessment mostly unchanged. B/L breast paddles unchanged from vascular perspective (see flowsheet). After assessing, assisted pt to bathroom and upon coming back to bed pt noted to have several spots of bright red blood on the front of her gown
that had not been there prior. On reassessment, pt was bleeding from incision sites on right breast paddle (at about the 6 oclock position) as well as from the vertical incision on right breast. Beverly text sent to Dr. Cates to make him aware of the
situation. No new orders at this time.
[2025-01-16] MEDS: VALIUM 5 MG PO ×2 (04:12→09:13)
[2025-01-16 04:54] LABS: Hematocrit 29.3 % (37.0-47.0); Hemoglobin 10.2 g/dL (12.0-16.0); Mean Corp Hgb Conc. 34.8 g/dL (33.0-37.0); Mean Corpuscular Hgb 32.3 pg (27.0-31.0); Mean Corpuscular Volume 92.7 fL (81.0-99.0); Mean Platelet Volume 9.1 fL (7.4-10.4); Platelet Count 236 10^3/uL (130-400); Red Blood Cell Count 3.16 10^6/uL (4.20-5.40); Red Cell Dist. Width 11.9 % (11.5-14.5); White Blood Cell Count 7.8 10^3/uL (4.8-10.8)
--- NOTE | 2025-01-16 05:02 | PTCARENOTE ---
Assessment unchanged. No additional bleeding when pt laying still in bed (abd pads had been loosely placed over b/l breasts so that if any additional bleeding happened it would be obvious by looking at abd pad). Breast paddle assessment the same. Pt
ambulated to BR, scant amount of new blood noted to R breast paddle incision once pt returned to bed (same location as previous). Pt medicated for pain with Oxycodone x2 this shift. Pt has been able to sleep between care. AM labs obtained.
[2025-01-16 05:21] LABS: Blood Urea Nitrogen 10 mg/dl (7-17); Calcium 8.8 mg/dl (8.4-10.2); Carbon Dioxide 26 mmol/L (22-30); Chloride 106 mmol/L (98-107); Estimated Creatinine Clearance 124 ml/min; Glucose 94 mg/dl (70-99); Potassium 3.7 mmol/L (3.5-5.1); Sodium 139 mmol/L (135-145); eGFR > 60.00
[2025-01-16] MEDS: PROCARDIA XL (EXTENDED RELEASE) 30 MG PO (07:55)
[2025-01-16] MEDS: TYLENOL 1000 MG PO (07:55)
[2025-01-16] MEDS: WELLBUTRIN XL (24 hour extended release) 150 MG PO (07:55)
[2025-01-16] MEDS: MIRALAX 17 GRAMS PO (07:56)
[2025-01-16] MEDS: NON-FORMULARY ITEM 20 MG PO (07:56)
[2025-01-16] MEDS: SENOKOT 8.6 MG PO (07:56)
[2025-01-16] MEDS: COLACE 100 MG PO (07:56)
--- NOTE | 2025-01-16 08:00 | PTCARENOTE ---
Assumed care of pt from night RN at 07:15. Breast paddle checks/pulses done in tandem with offgoing RN, see breast paddle flowsheet for ongoing assessment documentation. Pt is A/O x4, pleasant and cooperative with care. Has been ambulating to
bathroom with minimal assistance. Now back in bed, c/o mod pain in abdoment, scheduled meds administered -see NOV. 4 ZARI drains all with serosanguinous drainage, stripped/emptied, see drain and I&O flowsheets for further details. Physical assessment
as documented in nursing shift assessment flowsheet. Has been SR 70s on monitor. Ambulated in hallway with PT Dalila. Dr. Cates arrived in room to round on patient, discharge plan discussed. Call cevallos and personal items within reach.
--- NOTE | 2025-01-16 08:30 | W.PN.INTV ---
Today's Communication / Plan
Recommendations
Incentive spirometry
Increase activity as tolerated
Pain control
Patient to be discharged today to home. No additional recommendations at this time. Seaman/Pulmonary service will now sign off. Please reconsult if there are any additional questions/concerns, or if patient's respiratory status deteriorates.
Assessment
-
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
History of breast cancer status post bilateral mastectomy
Status post JACQUES 01/13/25
Conditions present prior to admission:
5, para 3-3 C-sections.
Breast cancer.
Bilateral mastectomy.
ADHD.
Anxiety/depression.
Plan
Patient doing well, and plan to be discharged home today
Supplemental oxygen as needed
Incentive spirometry encouraged
Nebulizers if needed-currently not bronchospastic
[employer] CONTRACT CLERK and plastic surgery following-correspondence reviewed
Operative records reviewed
Neurovascular checks per protocol
Analgesia per surgery
DVT prophylaxis-on Lovenox
Nutrition
Early mobilization
Patient to be discharged today to home. No additional recommendations at this time. Seaman/Pulmonary service will now sign off. Thank you for allowing us to be involved in the care of this patient. Please reconsult if there are any
additional questions/concerns, or if patient's respiratory status deteriorates.
Reviewed the patient's pertinent medical records including radiographs, microbiology, laboratory evaluations, and discussion with primary team, consultants, pharmacy, nutrition, physical therapy, case management, charge nurse, critical care
nursing, and respiratory therapy.
Diagnostic data:
Chest x-ray 01/13/25-NAD
Total time spent today was 28 minutes for this encounter. Time includes reviewing laboratory test/imaging results, reviewing pertinent medical records, obtaining and reviewing medical history, performing an appropriate exam, ordering medications,
tests and procedures. Time also includes documentation of this encounter, coordinating patient care and communicating with other healthcare professionals. Total time does not include separately billed tests performed on this date of service.
Subjective Dataa
Subjective Data
Date of Service:
Date of Service: January 16, 2025
Chief Complaint: Seaman Follow Up and Pulmonary Follow Up
Subjective:
Patient seen this morning. She feels well. Has mild abdominal discomfort. No issues overnight. Being discharged home today. Denies chest pain, SEALS, nausea, fevers or chills.
Review of Systems
General: Other (Negative unless mentioned above)
Objective Data
Data Reviewed
Vital Signs / I&O / Oxygen:
Vital Signs
Temp Pulse Resp BP Pulse Ox
98.6 F 71 17 128/79 97
01/16/25 07:21 01/16/25 08:00 01/16/25 08:00 01/16/25 08:00 01/15/25 21:50
Intake and Output
01/15/25 01/16/25 01/17/25
06:59 06:59 06:59
Intake Total 375 / 375 1850 / 1850 480 / 480
Output Total 3123 / 3123 3392 / 3392 230 / 230
Balance -2748 / -2748 -1542 / -1542 250 / 250
SaO2 97
Nasal Cannula flow liters per 99
minute
Physical Exam
General: Respiratory Distress (n) and Comfortable
HEENT: Normocephalic, Anicteric and Moist Mucous Membranes
Cardiovascular: Regular Rhythm
Respiratory: Wheeze (n), Crackles (n), Rhonchi (n), Non-Labored Respirations, Accessory Resp Muscle Use (n) and Stridor (n)
GI: Soft, Non Distended and Tender (Mild hypogastric abdominal discomfort palpation)
Neurology: AO x 3 and Tremors (n)
Skin: Warm, Dry, Cyanosis (n), Jaundice (n) and Rash (n)
Labs/Micro/Reports
Lab Data
01/16/25 04:44
01/16/25 04:44
--- NOTE | 2025-01-16 09:34 | W.PN.PLAS ---
Today's Communication
-
DC to home with [facility]
lovenox x 1 week
Progress Note
Subjective Data
Doing well denies shortness of breath
Subjective: Tolerating Regular Diet, Ambulatory, Hernandez Removed and Patient Voided
Objective Data
Vital Signs
Temp Pulse Resp BP Pulse Ox
98.6 F 71 17 128/79 97
01/16/25 07:21 01/16/25 08:00 01/16/25 08:00 01/16/25 08:00 01/15/25 21:50
Intake and Output
01/15/25 01/16/25 01/17/25
06:59 06:59 06:59
Intake Total 375 / 375 1850 / 1850
Output Total 3123 / 3123 3392 / 3392 200 / 200
Balance -2748 / -2748 -1542 / -1542 -200 / -200
Intake:
Oral fluids 1850 / 1850
IV fluids (Total) 375 / 375
Lr 1,000 ml @ 125 mls/hr IV . 375 / 375
Q8H SARITA Rx#:[id number]
Output:
Drain Output (Total) 273 / 273 172 / 172
Left Breast Saleem-Casey 114 / 114 37 / 37
Left Lower Abdomen Saleem- 89 / 89 66 / 66
Casey
Right Breast Saleem-Casey 24 / 24 20 / 20
Right Lower Abdomen Saleem- 46 / 46 49 / 49
Casey
Urine, Hernandez 400 / 400 300 / 300
Urine, Voided 2450 / 2450 2920 / 2920 200 / 200
Other:
Number of approximated SMALL 1
amounts of urine
Lab Results
01/16/25 04:44
01/16/25 04:44
Assessment / Plan
Postop day 3 from bilateral delayed JACQUES flap breast reconstruction and removal of tissue expanders
Expected dilutional anemia
Free flap breast reconstruction protocol
--- NOTE | 2025-01-16 09:34 | W.DCSUMMARY ---
Discharge Summary
Discharge Data
Date of Admission: 01/13/25
Date of Discharge: 01/16/25
-
Pending Results: No
Hospital Course
Admitted following JACQUES flap surgery. Followed a routine postop course. Required ICU monitoring for flap checks. Dischared POD 3 with close surgical follow up.
Discharge Plan
-
Patient Disposition: Home (Routine Discharge)
Discharge Diagnosis/Procedures: s/p JACQUES flap surgery
Condition: Good
Diet: Regular
Activity: No strenuous activity
Additional Activity: No heavy lifting >10 lbs
Driving Restrictions: Not until seen by your Dr
Bathing Restrictions: OK to Shower
Other Services: [facility]
Wound Care: ABD pads, binder, compressive bra as needed. Strip and record drain output twice daily
Referrals:
Roseann Omalley MD [Family Provider] -
Prescriptions:
New
docusate sodium 100 mg Capsule
100 mg PO TID 30 Days Qty: 90 0RF
polyethylene glycol 3350 17 gram Powder In Packet
17 g PO DAILY PRN (Reason: constipation) 14 Days Qty: 30 0RF
enoxaparin 40 mg/0.4 mL Syringe
40 mg SC QPM 5 Days Qty: 2 0RF
acetaminophen [Tylenol Extra Strength] 500 mg Tablet
1,000 mg PO QID 30 Days Qty: 240 0RF
gabapentin 300 mg Capsule
300 mg PO HS 30 Days Qty: 30 2RF
oxycodone 5 mg Tablet
5 mg PO Q4HPRN PRN (Reason: breakthrough mod-severe pain) 7 Days Qty: 20 0RF
diazepam 5 mg Tablet
5 mg PO Q6H 14 Days Qty: 56 0RF
Continued
bupropion HCl [Wellbutrin XL] 150 mg Tablet Extended Release 24 Hr
150 mg PO DAILY
nifedipine 30 mg Tablet Extended Release
30 mg PO DAILY Qty: 42 0RF
ibuprofen 200 mg Tablet
400 mg PO Q6H PRN (Reason: pain)
vilazodone 20 mg Tablet
20 mg PO DAILY
Merry Roots Liquid Multi
1 tbsp PO DAILY
Wellness Formula Multi
3 cap PO DAILY
Discharge Orders:
Discharge Patient (As Directed); Ordered 01/16/25
Ordered By: Bladimir Cates
Discharge Date and Time
Print Language: CHADIAN
--- NOTE | 2025-01-16 10:38 | CM ---
Patient medically cleared for discharge. Referral has been made to [facility] and she has been accepted. Agency should call patient this weekend to schedule visit.
Plan: Case management will continue to follow and assist with discharge planning. Home with [facility].
--- NOTE | 2025-01-16 11:52 | PTCARENOTE ---
Orders rec'd for discharge from Dr. Cates. Plan discussed, meds and next doses reviewed. Questions answered, pt verbalized understanding. PIV removed, home meds and belongings packed and sent with patient. Pt discharged to home with at
approx 11:45.
== END 2025-01-16 11:45 | disposition home health service (06) | DRG 585 ==
LOC: ICU 06:04
PROVIDERS: Nurse Practitioner Family; Nurse Practitioner Primary Care; Surgery; ADMITTING PHYSICIAN Surgery Plastic and Reconstructive Surgery; CONSULT PHYSICIAN Internal Medicine Critical Care Medicine; FAMILY PHYSICIAN Family Medicine
PROC: 0HRV077 Replacement of Bilateral Breast using Deep Inferior Epigastric Artery Perforator Flap, Open Approach (ICD-10-PCS; 2025-01-13)
PROC: 0HPU0NZ Removal of Tissue Expander from Left Breast, Open Approach (ICD-10-PCS; 2025-01-13)
PROC: 0HPT0NZ Removal of Tissue Expander from Right Breast, Open Approach (ICD-10-PCS; 2025-01-13)
PROC: 0WUF0JZ Supplement Abdominal Wall with Synthetic Substitute, Open Approach (ICD-10-PCS; 2025-01-13)
DX: Z42.1 Encounter for breast reconstruction following mastectomy (principal); Z85.3 Personal history of malignant neoplasm of breast; Z90.13 Acquired absence of bilateral breasts and nipples; Z92.3 Personal history of irradiation; F32.A Depression, unspecified; F41.9 Anxiety disorder, unspecified; F90.9 Attention-deficit hyperactivity disorder, unspecified type
CPT/HCPCS: 88304; 71045; 80048; 82962; 83735; 84100; 85014; 85018; 85027; 85610; 85730; 93005; 97116; 97163; A4648; C1729; C1781

== ENCOUNTER 2025-01-21 20:58 | Emergency (ER) | payer OTHER, SELFPAY ==
[2025-01-21 21:08] VITALS: BP 135/78
[2025-01-21 21:37] LABS: % Basophils 0.6 % (0-2); % Eosinophils 4.3 % (0-6); % Immature Granulocytes 0.8 % (0-0.5); % Lymphocytes 13.2 % (20.5-51.1); % Monocytes 6.8 % (1.7-9.3); % Neutrophils 74.3 % (42.2-75.2); Absolute Basophils 0.1 10^3/uL (0-0.2); Absolute Eosinophils 0.5 10^3/uL (0-0.7); Absolute Immature Granulocytes 0.1 10^3/uL (0-0.05); Absolute Lymphocytes 1.6 10^3/uL (1.2-3.4); Absolute Monocytes 0.8 10^3/uL (0.1-0.6); Absolute Neutrophils 8.9 10^3/uL (1.4-6.5); Hematocrit 29.5 % (37.0-47.0); Hemoglobin 10.3 g/dL (12.0-16.0); Mean Corp Hgb Conc. 34.9 g/dL (33.0-37.0); Mean Corpuscular Hgb 32.2 pg (27.0-31.0); Mean Corpuscular Volume 92.2 fL (81.0-99.0); Mean Platelet Volume 8.5 fL (7.4-10.4); Nucleated Red Blood Cells % 0 %; Platelet Count 374 10^3/uL (130-400); Red Cell Dist. Width 12.3 % (11.5-14.5)
[2025-01-21 21:56] LABS: ALT (SGPT) 24 U/L (0-35); AST (SGOT) 25 U/L (14-36); Albumin 4.4 g/dl (3.5-5.0); Alkaline Phosphatase 69 U/L (38-126); Blood Urea Nitrogen 10 mg/dl (7-17); Calcium 9.3 mg/dl (8.4-10.2); Carbon Dioxide 23 mmol/L (22-30); Chloride 105 mmol/L (98-107); Glucose 104 mg/dl (70-99); Potassium 4.4 mmol/L (3.5-5.1); Sodium 139 mmol/L (135-145); Total Bilirubin 0.5 mg/dl (0.2-1.3); Total Protein 7.1 g/dl (6.3-8.2); eGFR > 60.00
[2025-01-21 22:26] VITALS: BMI 24.3
[2025-01-21] MEDS: ROXICODONE 5 MG PO (22:50)
[2025-01-21] MEDS: NEURONTIN 300 MG PO (22:50)
[2025-01-21] MEDS: NSS 1000 IV (22:54)
--- NOTE | 2025-01-21 23:13 | ED.GENMED ---
History of Present Illness
General
Chief Complaint: Post Operative Problem(s)
Source: patient, records and previous hospital records
Exam Limitations: none
Time Seen by Provider: 01/21/25 22:25
Nursing documentation reviewed up to this point in time: agreed with
History of Present Illness
History of Present Illness:
Patient is very pleasant 39-year-old female few weeks postop from reconstruction abdominal flaps by Dr. Burgos, previously had a mastectomy for Dr. Cee, has ZARI drains in, has had a slow recovery of some pains, takes oxycodone, gabapentin,
earlier today developed some redness across her wound took her temperature is 101.7 no albert pus or drainage from the wound, no rigors, or chills, no dysuria or frequency no calf pain
Past History
Past History
ED Past Medical History: Cancer (Breast), Psychiatric, Other (Endometritis, anxiety, depression) and Other (Preeclampsia)
ED Past Surgical History: , Gynecological and Other
Social History
Tobacco: Non-smoker
Alcohol: Occasional
Drug: None
Personal:
Living: with family
Employment: Employed
Family History
Family History: Other (nonContributory)
Phy Exam
Physical Exam
Physical Exam:
Physical Exam
General: no apparent distress, not acutely ill
Neck: No jaundice
Heart: s1/s2 regular rate and rhythm, no murmur. equal radial pulses.
Lungs: no acute respiratory distress. clear bilaterally
Abdomen: Soft surgical scar clean dry and intact mild diffuse erythema surrounding the scar no fluctuance or exudate
Neuro: alert and oriented. no focal neurological deficits
Skin: no rash
Psychiatric: well kept. interactive and cooperative
Extremities: no edema. no calf tenderness
Course
Orders/Labs/Results
Orders:
Orders
01/21/25 21:20
CMP [Comprehensive Metabolic Panel] Urgent
Complete Blood Count/With Diff Urgent
HCG, Serum Qualitative Screen Urgent
Comment: ADD ON
01/21/25 22:45
Gabapentin [Neurontin] 300 mg PO NOW STA
Oxycodone [Roxicodone] 5 mg PO NOW STA
01/21/25 22:46
CT Abd/pelvis W Iv Cont Urgent
Comment:
Reason For Exam: post op fever
0.9% Sodium Chloride 1000 ml [Nss] 1,000 ml IV BOLUS
01/21/25 22:49
Add On- LAB Urgent
Tests Added?: hcg serum qualitative
01/22/25 00:15
CeFAZolin 2 GRAM [Ancef] 2 grams in 10 ml IV NOW
Abnormal Lab Results
01/21/25
21:20
WBC 12.0 H 10^3/uL
(4.8-10.8)
RBC 3.20 L 10^6/uL
(4.20-5.40)
Hgb 10.3 L g/dL
(12.0-16.0)
Hct 29.5 L %
(37.0-47.0)
MCH 32.2 H pg
(27.0-31.0)
Abs Immat Gran (auto) 0.1 H 10^3/uL
(0-0.05)
Absolute Neuts (auto) 8.9 H 10^3/uL
(1.4-6.5)
Absolute Monos (auto) 0.8 H 10^3/uL
(0.1-0.6)
Immature Gran % 0.8 H %
(0-0.5)
Lymphocytes % 13.2 L %
(20.5-51.1)
Creatinine 0.5 L mg/dL
(0.6-1.0)
Glucose 104 H mg/dl
(70-99)
01/21/25 21:20
01/21/25 21:20
Vital Signs
Initial and Last Documented VS:
Initial Vital Signs
Temp Pulse Resp BP Pulse Ox
98.4 F 105 18 135/78 97
01/21/25 21:08 01/21/25 21:08 01/21/25 21:08 01/21/25 21:08 01/21/25 21:08
Last Documented Vital Signs
Temp Pulse Resp BP Pulse Ox
98.2 F 100 16 116/68 98
01/21/25 22:29 01/21/25 23:39 01/21/25 23:39 01/21/25 23:39 01/21/25 23:39
MDM/Problems Addressed
Differential Diagnosis Includes:
Postop infection looks superficial
Fever at home
No calf pain no shortness of breath no dysuria frequency
MDM/Problems Addressed:
Fever postop
*Critical Care Note
Total Time (30-74mins, 75-104mins- exclusive of procedures): Not Applicable
Update Note
Update Note:
12:15 AM update labs noted, CT report noted will start on antibiotics message sent to her treating surgeon
My thought is that she has cellulitis and can follow-up tomorrow as scheduled in the office
ED Attending Note
-
Portions of this chart may have been created with voice recognition software.� Occasional wrong word or��sound alike� substitutions may have occurred due to the inherent limitations of voice recognition software.
Discharge Plan
Departure
Patient Disposition: Home (Routine Discharge)
Date of Disposition: 01/22/25
Time of Disposition: 00:16
Patient with high blood pressure during this ER visit?: No
Condition: Good
Discharge Problem:
Cellulitis
Instructions: Cellulitis (skin infection) in children - ED discharge instructions
Prescriptions:
New
cephalexin 500 mg capsule
500 mg PO Q6H 10 Days Qty: 40 0RF
No Action
bupropion HCl [Wellbutrin XL] 150 mg Tablet Extended Release 24 Hr
150 mg PO DAILY
nifedipine 30 mg Tablet Extended Release
30 mg PO DAILY Qty: 42 0RF
ibuprofen 200 mg Tablet
400 mg PO Q6H PRN (Reason: pain)
vilazodone 20 mg Tablet
20 mg PO DAILY
Merry Roots Liquid Multi
1 tbsp PO DAILY
Wellness Formula Multi
3 cap PO DAILY
docusate sodium 100 mg Capsule
100 mg PO TID 30 Days Qty: 90 0RF
polyethylene glycol 3350 17 gram Powder In Packet
17 g PO DAILY PRN (Reason: constipation) 14 Days Qty: 30 0RF
enoxaparin 40 mg/0.4 mL Syringe
40 mg SC QPM 5 Days Qty: 2 0RF
acetaminophen [Tylenol Extra Strength] 500 mg Tablet
1,000 mg PO QID 30 Days Qty: 240 0RF
gabapentin 300 mg Capsule
300 mg PO HS 30 Days Qty: 30 2RF
oxycodone 5 mg Tablet
5 mg PO Q4HPRN PRN (Reason: breakthrough mod-severe pain) 7 Days Qty: 20 0RF
diazepam 5 mg Tablet
5 mg PO Q6H 14 Days Qty: 56 0RF
Referrals:
Roseann Omalley MD [Family Provider] -
Bladimir Cates MD [Active] - Keep scheduled appt
Activity Restrictions/Additional Instructions:
Follow-up with your appointment tomorrow as scheduled with your surgeon
Interventions
Interventions:
*Risk Screen - Suicide Last Done: 01/21/25 21:08
*General Assessment Last Done: 01/21/25 21:08
*Neglect/Abuse Screening Last Done: 01/21/25 21:08
*ED- Fall Risk Assessment Last Done: 01/21/25 21:08
*ED COVID-19 Vaccine History Last Done: 01/21/25 21:08
ED-Skin Assessment Last Done: 01/21/25 22:27
Discharge Date and Time
Print Language: AMHARIC
[2025-01-21 23:18] LABS: HCG, Serum Qualitative Screen Negative
[2025-01-21 23:39] VITALS: BP 116/68
[2025-01-22] MEDS: ANCEF 10 IV (00:31)
== END 2025-01-22 00:50 | disposition home or self-care (01) ==
LOC: EMR 20:58
PROVIDERS: EMERGENCY PHYSICIAN Emergency Medicine; FAMILY PHYSICIAN Family Medicine
DX: T81.41XA Infection following a procedure, superficial incisional surgical site, initial encounter (principal); L03.311 Cellulitis of abdominal wall; Z85.3 Personal history of malignant neoplasm of breast
CPT/HCPCS: 96374; 96361; 99284; 74177; 80053; 84703; 85025; Q9967

== ENCOUNTER → 2025-06-17 10:48 | Outpatient (REF) | payer OTHER, SELFPAY ==
[2025-06-17 12:10] LABS: Hematocrit 35.9 % (37.0-47.0); Hemoglobin 12.4 g/dL (12.0-16.0); Mean Corp Hgb Conc. 34.5 g/dL (33.0-37.0); Mean Corpuscular Volume 91.1 fL (81.0-99.0); Nucleated Red Blood Cells % 0 %; Platelet Count 283 10^3/uL (130-400); Red Cell Dist. Width 12.5 % (11.5-14.5)
[2025-06-17 13:25] LABS: ALT (SGPT) 16 U/L (0-35); AST (SGOT) 20 U/L (14-36); Albumin 4.8 g/dl (3.5-5.0); Alkaline Phosphatase 49 U/L (38-126); Blood Urea Nitrogen 11 mg/dl (7-17); Calcium 9.2 mg/dl (8.4-10.2); Carbon Dioxide 25 mmol/L (22-30); Chloride 106 mmol/L (98-107); Glucose 80 mg/dl (70-99); Potassium 4.4 mmol/L (3.5-5.1); Sodium 139 mmol/L (135-145); Total Protein 7.3 g/dl (6.3-8.2); eGFR > 60.00
== END ==
LOC: REG 10:48
PROVIDERS: ATTENDING PHYSICIAN Surgery Plastic and Reconstructive Surgery; FAMILY PHYSICIAN Family Medicine
DX: Z01.818 Encounter for other preprocedural examination (principal)
CPT/HCPCS: 36415; 80053; 85025; 93005

== ENCOUNTER → 2025-07-02 08:36 | Outpatient (REF) | payer OTHER, SELFPAY | LOC: RAD 08:36 | PROVIDERS: ATTENDING PHYSICIAN Surgery Plastic and Reconstructive Surgery; FAMILY PHYSICIAN Family Medicine | DX: K40.20 Bilateral inguinal hernia, without obstruction or gangrene, not specified as recurrent (principal) | CPT/HCPCS: 74174; Q9967 ==

== ENCOUNTER 2025-07-06 06:22 | Day surgery (SDC) | payer OTHER, SELFPAY ==
[2025-07-06] VITALS (10 sets, daily range): BP systolic 109–141; BP diastolic 68–87; BMI 21.9
[2025-07-06] MEDS: TYLENOL 1000 MG PO (11:28)
[2025-07-06] MEDS: NORMOSOL-R/PLASMALYTE-A 1000 IV (11:36)
--- NOTE | 2025-07-06 16:46 | W.IMMPOSTOP ---
Surgical Immed Post Op Note
-
Primary Surgeon: MARI Cates MD
Assisting Surgeon:
Pre-op Diagnosis: History of breast cancer
Post-op Diagnosis: Same
Procedure Performed: Revision to reconstructed breast, adjacent tissue transfer, fat grafting
Anesthesia Type: General
Specimen / Cultures: None
Estimated Blood Loss: 30 cc
Complications: None
Operative Findings: As expected
--- NOTE | 2025-07-06 16:46 | OR.RPT ---
Operative Report
Operative Report
Date of surgery: 07/06/2025
Surgeon: MARI Cates MD
Preoperative diagnosis:
1. History of breast cancer
2. Status post bilateral mastectomy
3. History radiation
4. Status post JACQUES flap reconstruction
Postoperative diagnosis: Same
Procedure:
1. Revision to left reconstructed breast
2. Right breast mastopexy
3. Fat grafting to the bilateral breasts, 300 cc total
4. Adjacent tissue transfer, right abdominal trunk donor site, 6 x 3 cm
Complications: None
Anesthesia: General
EBL: 30 cc
Specimens: None
Indications for procedure: Patient is a 40-year-old female with a history of breast cancer status post bilateral mastectomies and two-stage reconstruction with interval radiation. Following radiation, she underwent bilateral JACQUES flap
reconstruction. Followed a routine postoperative course. She presented with asymmetries due to the radiated and nonradiated breast as well as donor site abnormalities. She had contour irregularities and volume discrepancies. She had tethered
scars in the left superior pole of the breast from the radiation. She desired correction of these things. A conversation was had about the options including a right mastopexy to remove skin excess. The left revision reconstructed breast would
include excision and release of the fibrotic scars tethering the upper pole. Fat grafting could be performed bilaterally to fill any contour deficiencies. Volume would be corrected in the same way. Donor site would be the lateral trunk and flanks
and thighs. She had a right abdominal skin excess from the donor site which she required correction this to be performed via rotation advancement flap after excision of the redundant tissue. Risks include additional scarring, fat necrosis, oil
cyst, residual asymmetry, skin loss and wound healing difficulty. She understood these risks and desired to proceed.
Procedure in detail: Patient was identified preoperatively and the surgical site was confirmed to be the bilateral breast lateral flanks and trunk and right abdomen. The right mastopexy was drawn out with the patient in the upright position. The
areas of tethered fibrosis on the left were also demarcated. All questions were answered and consents were confirmed. All questions were answered and consents were confirmed. The patient was taken back to the operating room placed supine on the
table anesthesia was induced and the patient was prepped and draped in the usual sterile fashion using ChloraPrep solution. A timeout for patient safety was performed was confirmed the bilateral SCDs were in place and preoperative antibiotics
administered. Procedure began with the injection 1% lidocaine with epinephrine in the proposed excisional sites as well as access for the fat harvest. Tumescent solution consisting of 1 L normal saline followed by the 1% lidocaine and 1 amp of epi
was then injected into the donor sites. While this was allowed to set then, the right mastopexy was performed. A superior circumareolar mastopexy was performed on the right breast as well as an inferior wedge was removed. This was done sharply
with a 15 blade followed by Bovie electrocautery. The wounds were closed in layers with a series of 3-0 and 4-0 Monocryl sutures. Attention was then drawn for fat grafting donor sites where SAF E liposuction protocol was followed. Separation was
first performed followed by aspiration and fat equilibration. The fat was processed using the pure graft system. A total of approximately 800 cc of Lipo aspirate was removed. While processing the fat, attention was drawn to the left breast where
the revision was performed with a combination of substation sharply with an 18-gauge and excision of fibrotic tissue. The right abdominal donor site was marked for excision and a 6 x 3 area was then excised and reconstructed with a rotation
advancement flap using the superior lateral abdominal skin. A backcut was made to prevent recurrent dogear formation. This wound was also closed in layers using 3-0 and 4-0 Monocryl. There was a total of 300 cc of fat available for injection and
this was distributed over the bilateral breasts as needed to improve contour deficiencies and volume asymmetry. The various access sites for liposuction were closed with 5-0 fast. Patient tolerated the procedure well and was performed out
complication. All counts were correct at the end the case. She was extubated taken the PACU further care..
[2025-07-06] MEDS: SUBLIMAZE 25 MCG IV (17:20)
[2025-07-06] MEDS: DILAUDID 0.25 MG IV (17:49)
[2025-07-06] MEDS: ZOFRAN 4 MG IV (19:37)
== END 2025-07-06 20:01 | disposition home or self-care (01) ==
LOC: SDS 06:22
PROVIDERS: ATTENDING PHYSICIAN Surgery Plastic and Reconstructive Surgery
DX: Z85.3 Personal history of malignant neoplasm of breast (principal); Z90.13 Acquired absence of bilateral breasts and nipples; Z92.3 Personal history of irradiation; Z98.890 Other specified postprocedural states
CPT/HCPCS: 19380; 15771; 15772; 14001